=== PATIENT | female | born 1990 | race Caucasian/White ===

== ENCOUNTER 2017-11-28 16:28 | Emergency (ER) | payer MEDICAID, OTHER ==
[~2017-11-28 16:28] MED LIST: AMOX-580 PO; HYDR-3965 PO; NO HOME MEDS
== END 2017-11-28 17:21 | disposition left against medical advice (07) ==
LOC: ER 16:29
DX: R10.9 Unspecified abdominal pain (principal); Z53.21 Procedure and treatment not carried out due to patient leaving prior to being seen by health care provider

== ENCOUNTER 2018-01-27 20:13 | Inpatient (IN) | payer MEDICAID, OTHER ==
[~2018-01-27] VITALS: Ht 167.6 cm; Wt 61.8 kg
[~2018-01-27 20:13] MED LIST changes: -AMOX-580 PO; -HYDR-3965 PO
[2018-01-27 21:13] LABS: BASOPHILS % (AUTO) 0.2 % (0-1); EOSINOPHILS # (AUTO) 0.3 X10'3 (0-0.9); EOSINOPHILS % (AUTO) 1.5 % (0-6); HEMATOCRIT 28.9 % (35.0-45.0); HEMOGLOBIN 9.5 g/dl (12.0-16.0); LYMPHOCYTES # (AUTO) 2.3 X10'3 (1.1-4.8); LYMPHOCYTES % (AUTO) 14.3 % (21-51); MEAN CORPUSCULAR HEMOGLOBIN 22.3 PG (27.0-31.0); MEAN CORPUSCULAR HGB CONC 32.8 % (33.0-36.5); MEAN CORPUSCULAR VOLUME 68.1 FL (78-98); MONOCYTES # (AUTO) 1.1 X10'3 (0-0.9); MONOCYTES % (AUTO) 6.8 % (2-12); NEUTROPHILS # (AUTO) 12.6 X10'3 (1.8-7.7); NEUTROPHILS % (AUTO) 77.2 % (42-75); PLATELET COUNT 503 X10'3 (140-440); RED BLOOD COUNT 4.24 X10'6 (4.20-5.60); RED CELL DISTRIBUTION WIDTH 20.5 % (11.5-14.5); WHITE BLOOD COUNT 16.4 X10'3 (4.5-11.0)
[2018-01-27 21:24] LABS: PROTHROMBIN TIME 10.4 SECONDS (9.0-12.0)
[2018-01-27 21:30] LABS: ALANINE AMINOTRANSFERASE 19 U/L (12-78); ALBUMIN 2.9 G/DL (3.4-5.0); ALBUMIN/GLOBULIN RATIO 0.5 (1.1-1.5); ALKALINE PHOSPHATASE 81 IU/L (46-116); ANION GAP 8 (8-16); ASPARTATE AMINO TRANSFERASE 12 U/L (10-37); BILIRUBIN,TOTAL 0.4 MG/DL (0.1-1.0); BLOOD UREA NITROGEN 22 MG/DL (7-18); BUN/CREATININE RATIO 19.6 (6.6-38.0); CALCIUM 8.5 MG/DL (8.5-10.1); CHLORIDE 102 MMOL/L (99-107); CREATININE 1.12 MG/DL (0.40-0.90); GLUCOSE 134 MG/DL (70-104); SODIUM 137 MMOL/L (135-145); TOTAL CARBON DIOXIDE 26.6 MMOL/L (24-32); TOTAL PROTEIN 8.7 G/DL (6.4-8.2); eGFR 58 ML/MIN
[2018-01-27 22:08] LABS: LARGE PLATELETS FEW; PLATELET ESTIMATE INCREASED
[2018-01-27 22:10] LABS: ANISOCYTOSIS 3+; HYPOCHROMASIA 1+
[2018-01-27 22:11] LABS: MICROCYTOSIS 2+; STOMATOCYTES 1+
[2018-01-27 22:12] LABS: POLYCHROMASIA FEW
[2018-01-27 23:05] LABS: CLARITY,URINE Cloudy (Clear); COLOR,URINE Yellow (Yellow); GLUCOSE, URINE Negative (Neg); KETONES,URINE Negative (Neg); LEUKOCYTE ESTERASE ,URINE Large (Neg); NITRITES, URINE Positive (Neg); OCCULT BLOOD,URINE Moderate (Neg); PH,URINE 6.5 (4.8-8.0); PROTEIN,URINE 30 mg/dl (Neg); URINE HCG NEGATIVE (NEG)
[2018-01-27 23:14] LABS: UA COLLECTION TYPE CLN CATCH MIDSTREAM
[2018-01-27 23:15] LABS: WBC,URINE TNTC /HPF (0-4)
[2018-01-27 23:19] LABS: BACTERIA,URINE 4+ /HPF (Neg); MUCUS STRANDS MODERATE /LPF (Neg); SQUAMOUS EPITHELIAL CELL,UR MODERATE /LPF (FEW)
[2018-01-27 23:25] LABS: HYALINE CASTS 0-3 /LPF (NEGATIVE); WBC CLUMPS,URINE MANY /HPF (NEGATIVE)
[2018-01-27] MEDS ORDERED: normal saline 1000ML IV soln IV ONE (23:55)
[2018-01-27] MEDS ORDERED: CefTRIAXone 2gm/NS 100ml IVPB 100 ML IV ONE (23:55)
[2018-01-27] MEDS ORDERED: ketorolac tromethamine 15mg/ml inj. IV ONE (23:55)
[2018-01-28] MEDS ORDERED: ondansetron/PF 4mg/2ml inj IV PRN (01:20)
[2018-01-28] MEDS ORDERED: acetaminophen 325mg tablet PO PRN (01:20)
[2018-01-28] MEDS: normal saline 1000ml 1,000 ML IV SCH ×3 (01:27→17:00)
[2018-01-28] MEDS: MORPHINE 2MG in 2ml NS syringe IV PRN ×3 (04:11→20:34)
[2018-01-28] MEDS: heparin, porcine 5000 units/ml vial SQ SCH ×2 (07:17→20:24)
[2018-01-28] MEDS: lactobacillus rhamnosus 10,000 MMU CELLS/CAPSULE PO SCH ×2 (07:22→20:23)
[2018-01-28 17:00] VITALS: BP 117/61
[2018-01-28] MEDS: HYDROcodone/acetaminophen 5mg/325mg tablet PO PRN (17:22)
[2018-01-28] MEDS ORDERED: CefTRIAXone/D5W-Rocephin 1gm 50 ML IV SCH (21:00)
[2018-01-29 00:10] VITALS: BP 103/65
[2018-01-29] MEDS: HYDROcodone/acetaminophen 5mg/325mg tablet PO PRN (04:53)
[2018-01-29] MEDS: normal saline 1000ml 1,000 ML IV SCH (05:30)
[2018-01-29 05:41] LABS: BASOPHILS # (AUTO) 0.1 X10'3 (0-0.2); BASOPHILS % (AUTO) 0.7 % (0-1); EOSINOPHILS # (AUTO) 0.1 X10'3 (0-0.9); EOSINOPHILS % (AUTO) 1.7 % (0-6); HEMATOCRIT 24.6 % (35.0-45.0); HEMOGLOBIN 7.9 g/dl (12.0-16.0); LYMPHOCYTES # (AUTO) 2.1 X10'3 (1.1-4.8); LYMPHOCYTES % (AUTO) 27.6 % (21-51); MEAN CORPUSCULAR HGB CONC 32.2 % (33.0-36.5); MEAN CORPUSCULAR VOLUME 68.3 FL (78-98); MEAN PLATELET VOLUME 7.3 FL (7.4-10.4); MONOCYTES # (AUTO) 0.8 X10'3 (0-0.9); MONOCYTES % (AUTO) 10.6 % (2-12); NEUTROPHILS # (AUTO) 4.5 X10'3 (1.8-7.7); NEUTROPHILS % (AUTO) 59.4 % (42-75); PLATELET COUNT 412 X10'3 (140-440); RED CELL DISTRIBUTION WIDTH 20.2 % (11.5-14.5); WHITE BLOOD COUNT 7.6 X10'3 (4.5-11.0)
[2018-01-29 06:01] LABS: ALBUMIN 2.1 G/DL (3.4-5.0); ANION GAP 8 (8-16); BLOOD UREA NITROGEN 10 MG/DL (7-18); BUN/CREATININE RATIO 11.1 (6.6-38.0); CALCIUM 8.2 MG/DL (8.5-10.1); CHLORIDE 105 MMOL/L (99-107); GLUCOSE 105 MG/DL (70-104); POTASSIUM 4.1 MMOL/L (3.5-5.1); SODIUM 139 MMOL/L (135-145); TOTAL CARBON DIOXIDE 25.8 MMOL/L (24-32); eGFR 74 ML/MIN
[2018-01-29 08:00] VITALS: BP 101/49
[2018-01-29 08:38] LABS: HYPOCHROMASIA 1+; PLATELET ESTIMATE NORMAL
[2018-01-29 08:39] LABS: ANISOCYTOSIS 2+; MICROCYTOSIS 2+
[2018-01-29] MEDS: heparin, porcine 5000 units/ml vial SQ SCH (09:48)
[2018-01-29] MEDS: lactobacillus rhamnosus 10,000 MMU CELLS/CAPSULE PO SCH (09:48)
[2018-01-29] MEDS: MORPHINE 2MG in 2ml NS syringe IV PRN (09:52)
[2018-01-29] MEDS ORDERED: SULF1TAB49 PO (10:57)
[2018-01-29] MEDS ORDERED: HYDR-569 PO (10:57)
== END 2018-01-29 14:15 | disposition home or self-care (01) | DRG 720 ==
LOC: ER 20:14 → ED HOLD 01-28 01:18 → EDBEDREQ 01-28 16:16 → SUR 3N 01-28 16:52
PROVIDERS: ADMIT Family Medicine; ATTEND Internal Medicine
DX: A41.9 Sepsis, unspecified organism (principal); N10 Acute pyelonephritis; E86.0 Dehydration; F15.10 Other stimulant abuse, uncomplicated; F17.210 Nicotine dependence, cigarettes, uncomplicated; Z91.19 Patient's noncompliance with other medical treatment and regimen; Z87.442 Personal history of urinary calculi; Z82.0 Family history of epilepsy and other diseases of the nervous system
CPT/HCPCS: 36415; 74018; 76775; 80048; 80053; 81001; 81025; 83605; 84145; 85025; 85610; 87040; 87070; 87077; 87088; 87186; 96365; 96375; 99285; J0696; J1644; J1885; J2274; J2405; J7030

== ENCOUNTER 2018-04-11 16:48 | Inpatient (IN) | payer MEDICAID ==
[~2018-04-11] VITALS: Ht 167.6 cm; Wt 60.7 kg
[~2018-04-11 16:48] MED LIST changes: +HYDR-569 PO; -NO HOME MEDS
[2018-04-11 17:38] LABS: CLARITY,URINE TURBID (Clear); COLOR,URINE YELLOW (Yellow); GLUCOSE, URINE NEGATIVE (Neg); KETONES,URINE TRACE mg/dl (Neg); LEUKOCYTE ESTERASE ,URINE MODERATE (Neg); NITRITES, URINE POSITIVE (Neg); OCCULT BLOOD,URINE LARGE (Neg); PROTEIN,URINE >=300 mg/dl (Neg)
[2018-04-11 17:39] LABS: UA COLLECTION TYPE OTHER
[2018-04-11 17:43] LABS: BACTERIA,URINE 3+ /HPF (Neg); MUCUS STRANDS NONE SEEN /LPF (Neg); RBC,URINE 50-100 /HPF (0-2); SQUAMOUS EPITHELIAL CELL,UR MANY /LPF (FEW); WBC CLUMPS,URINE MODERATE /HPF (NEGATIVE); WBC,URINE 50-100 /HPF (0-4)
[2018-04-11 17:44] LABS: CAL OXALATE CRYSTALS 1+ /HPF (NEGATIVE)
[2018-04-11] MEDS ORDERED: NO HOME MEDS (18:25)
[2018-04-11] MEDS ORDERED: morphine 4 MG/ML inj SYRINge IV ONE (19:15)
[2018-04-11] MEDS ORDERED: mag hydrox/Alum hydrox/simeth 30ml oral suspension PO PRN (19:25)
[2018-04-11] MEDS ORDERED: magnesium 2GM in 50ml NS 50 ML IV PRN (19:25)
[2018-04-11] MEDS ORDERED: magnesium Cl slow-release 64mg tablet PO PRN (19:25)
[2018-04-11] MEDS ORDERED: HYDROcodone/acetaminophen 5mg/325mg tablet PO PRN (19:25)
[2018-04-11] MEDS ORDERED: magnesium 4gm in 100ml NS 100 ML IV PRN (19:25)
[2018-04-11] MEDS ORDERED: acetaminophen 325mg tablet PO PRN ×2 (19:25)
[2018-04-11] MEDS ORDERED: potassium Cl 20 mEq SR tablet PO PRN ×2 (19:25)
[2018-04-11] MEDS ORDERED: magnesium hydroxide 30ml (MOM) UD suspension PO PRN (19:25)
[2018-04-11] MEDS ORDERED: ondansetron/PF 4mg/2ml inj IV PRN (19:25)
[2018-04-11] MEDS ORDERED: potassium Cl 40MEQ/NS 500ml 500 ML IV PRN ×2 (19:25)
[2018-04-11] MEDS ORDERED: HYDROmorphone inj. 0.5 MG/0.5 ML DISP.SYRIN IV PRN ×2 (19:25)
[2018-04-11 19:38] LABS: BASOPHILS # (AUTO) 0.1 X10'3 (0-0.2); BASOPHILS % (AUTO) 0.5 % (0-1); EOSINOPHILS # (AUTO) 0.1 X10'3 (0-0.9); EOSINOPHILS % (AUTO) 1.2 % (0-6); HEMATOCRIT 33.6 % (35.0-45.0); HEMOGLOBIN 10.8 g/dl (12.0-16.0); LYMPHOCYTES # (AUTO) 3.3 X10'3 (1.1-4.8); LYMPHOCYTES % (AUTO) 27.7 % (21-51); MEAN CORPUSCULAR HEMOGLOBIN 22.1 PG (27.0-31.0); MEAN CORPUSCULAR HGB CONC 32.2 % (33.0-36.5); MEAN CORPUSCULAR VOLUME 68.8 FL (78-98); MEAN PLATELET VOLUME 7.7 FL (7.4-10.4); MONOCYTES # (AUTO) 0.8 X10'3 (0-0.9); MONOCYTES % (AUTO) 7.1 % (2-12); NEUTROPHILS # (AUTO) 7.6 X10'3 (1.8-7.7); NEUTROPHILS % (AUTO) 63.5 % (42-75); PLATELET COUNT 339 X10'3 (140-440); RED BLOOD COUNT 4.88 X10'6 (4.20-5.60); RED CELL DISTRIBUTION WIDTH 20.6 % (11.5-14.5)
[2018-04-11 19:52] LABS: ALANINE AMINOTRANSFERASE 18 U/L (12-78); ALBUMIN 3.2 G/DL (3.4-5.0); ALBUMIN/GLOBULIN RATIO 0.7 (1.1-1.5); ALKALINE PHOSPHATASE 79 IU/L (46-116); ANION GAP 4 (8-16); ASPARTATE AMINO TRANSFERASE 16 U/L (10-37); BILIRUBIN,TOTAL 0.3 MG/DL (0.1-1.0); BLOOD UREA NITROGEN 15 MG/DL (7-18); BUN/CREATININE RATIO 14.6 (6.6-38.0); CALCIUM 8.6 MG/DL (8.5-10.1); CHLORIDE 106 MMOL/L (99-107); CREATININE 1.03 MG/DL (0.40-0.90); GLUCOSE 89 MG/DL (70-104); POTASSIUM 3.4 MMOL/L (3.5-5.1); SODIUM 137 MMOL/L (135-145); TOTAL CARBON DIOXIDE 27.1 MMOL/L (24-32); TOTAL PROTEIN 7.7 G/DL (6.4-8.2); eGFR 63 ML/MIN
[2018-04-11] MEDS: CefTRIAXone/D5W-Rocephin 1gm 50 ML IV SCH ×2 (20:16→20:25)
[2018-04-11] MEDS: normal saline 1000ml 1,000 ML IV SCH (20:24)
[2018-04-11 20:48] VITALS: BP 133/82
[2018-04-11] MEDS ORDERED: temazepam 15mg capsule PO PRN (21:00)
[2018-04-11 22:08] LABS: PARTIAL THROMBOPLASTIN TIME 25 SECONDS (22-32); PROTHROMBIN TIME 10.1 SECONDS (9.0-12.0)
[2018-04-11] MEDS ORDERED: potassium Cl 40MEQ/NS 500ml 500 ML IV ONE (23:19)
[2018-04-12] VITALS: BP 126/79
[2018-04-12 04:12] LABS: BASOPHILS % (AUTO) 0.3 % (0-1); EOSINOPHILS # (AUTO) 0.4 X10'3 (0-0.9); HEMATOCRIT 32.9 % (35.0-45.0); HEMOGLOBIN 10.4 g/dl (12.0-16.0); LYMPHOCYTES # (AUTO) 3.1 X10'3 (1.1-4.8); LYMPHOCYTES % (AUTO) 32.3 % (21-51); MEAN CORPUSCULAR HGB CONC 31.8 % (33.0-36.5); MEAN CORPUSCULAR VOLUME 69.1 FL (78-98); MEAN PLATELET VOLUME 7.8 FL (7.4-10.4); MONOCYTES # (AUTO) 0.8 X10'3 (0-0.9); MONOCYTES % (AUTO) 8.8 % (2-12); NEUTROPHILS # (AUTO) 5.3 X10'3 (1.8-7.7); NEUTROPHILS % (AUTO) 54.6 % (42-75); PLATELET COUNT 323 X10'3 (140-440); RED BLOOD COUNT 4.76 X10'6 (4.20-5.60); RED CELL DISTRIBUTION WIDTH 19.9 % (11.5-14.5); WHITE BLOOD COUNT 9.7 X10'3 (4.5-11.0)
[2018-04-12 04:53] LABS: ALANINE AMINOTRANSFERASE 19 U/L (12-78); ALBUMIN 2.9 G/DL (3.4-5.0); ALBUMIN/GLOBULIN RATIO 0.7 (1.1-1.5); ALKALINE PHOSPHATASE 76 IU/L (46-116); ANION GAP 6 (8-16); ASPARTATE AMINO TRANSFERASE 14 U/L (10-37); BILIRUBIN,TOTAL 0.3 MG/DL (0.1-1.0); BLOOD UREA NITROGEN 13 MG/DL (7-18); BUN/CREATININE RATIO 14.4 (6.6-38.0); CALCIUM 8.7 MG/DL (8.5-10.1); CHLORIDE 106 MMOL/L (99-107); GLUCOSE 85 MG/DL (70-104); MAGNESIUM 1.9 MG/DL (1.5-2.4); POTASSIUM 3.2 MMOL/L (3.5-5.1); SODIUM 140 MMOL/L (135-145); TOTAL CARBON DIOXIDE 28.1 MMOL/L (24-32); TOTAL PROTEIN 7.1 G/DL (6.4-8.2); eGFR 74 ML/MIN
[2018-04-12 06:06] LABS: ANISOCYTOSIS 2+; MICROCYTOSIS 2+; PLATELET ESTIMATE NORMAL
[2018-04-12 06:07] LABS: ELLIPTOCYTES FEW; STOMATOCYTES FEW
[2018-04-12 07:00] VITALS: BP 116/68
[2018-04-12] MEDS: lactobacillus rhamnosus 10,000 MMU CELLS/CAPSULE PO SCH ×2 (08:00→20:39)
[2018-04-12] MEDS: K and/or MAG REPLACEMENT MC SCH (08:00)
[2018-04-12 11:50] VITALS: BP 104/76
[2018-04-12] MEDS ORDERED: HYDROmorphone 1 mg/ml syringe ONE (14:32)
[2018-04-12] MEDS: normal saline 1000ml 1,000 ML IV SCH (14:44)
[2018-04-12] MEDS: HYDROcodone/acetaminophen 10/325mg tab PO PRN ×2 (17:50→21:50)
[2018-04-12 20:00] VITALS: BP 106/58
[2018-04-12] MEDS: mineral oil/petrolatum, white cream 113gm jar TP SCH (20:00)
[2018-04-12] MEDS: sennosides/docusate sodium tablet PO SCH (20:39)
[2018-04-13] VITALS: BP 99/59
[2018-04-13 05:28] LABS: BASOPHILS % (AUTO) 0.5 % (0-1); EOSINOPHILS # (AUTO) 0.5 X10'3 (0-0.9); EOSINOPHILS % (AUTO) 8.2 % (0-6); HEMOGLOBIN 10.2 g/dl (12.0-16.0); LYMPHOCYTES # (AUTO) 3.2 X10'3 (1.1-4.8); LYMPHOCYTES % (AUTO) 47.1 % (21-51); MEAN CORPUSCULAR HGB CONC 31.7 % (33.0-36.5); MEAN CORPUSCULAR VOLUME 69.2 FL (78-98); MEAN PLATELET VOLUME 7.9 FL (7.4-10.4); MONOCYTES # (AUTO) 0.7 X10'3 (0-0.9); MONOCYTES % (AUTO) 9.8 % (2-12); NEUTROPHILS # (AUTO) 2.3 X10'3 (1.8-7.7); NEUTROPHILS % (AUTO) 34.4 % (42-75); PLATELET COUNT 285 X10'3 (140-440); RED BLOOD COUNT 4.63 X10'6 (4.20-5.60); RED CELL DISTRIBUTION WIDTH 20.4 % (11.5-14.5); WHITE BLOOD COUNT 6.7 X10'3 (4.5-11.0)
[2018-04-13] MEDS: normal saline 1000ml 1,000 ML IV SCH ×3 (05:31→17:59)
[2018-04-13 05:38] LABS: URINE AMPHETAMINE SCREEN POSITIVE (Neg); URINE BARBITUATE SCREEN NEGATIVE (Neg); URINE BENZODIAZEPINES SCREEN NEGATIVE (Neg); URINE CANNABINOID SCREEN NEGATIVE (Neg); URINE COCAINE SCREEN NEGATIVE (Neg); URINE METHADONE SCREEN NEGATIVE (Neg); URINE OPIATE SCREEN POSITIVE (Neg); URINE PHENCYCLIDINE SCREEN NEGATIVE (Neg)
[2018-04-13 06:13] LABS: ALANINE AMINOTRANSFERASE 15 U/L (12-78); ALBUMIN 2.6 G/DL (3.4-5.0); ALBUMIN/GLOBULIN RATIO 0.6 (1.1-1.5); ALKALINE PHOSPHATASE 71 IU/L (46-116); ANION GAP 7 (8-16); ASPARTATE AMINO TRANSFERASE 13 U/L (10-37); BILIRUBIN,TOTAL 0.2 MG/DL (0.1-1.0); BLOOD UREA NITROGEN 18 MG/DL (7-18); BUN/CREATININE RATIO 19.1 (6.6-38.0); CALCIUM 8.2 MG/DL (8.5-10.1); CHLORIDE 106 MMOL/L (99-107); CREATININE 0.94 MG/DL (0.40-0.90); GLUCOSE 98 MG/DL (70-104); POTASSIUM 3.8 MMOL/L (3.5-5.1); SODIUM 141 MMOL/L (135-145); TOTAL CARBON DIOXIDE 27.7 MMOL/L (24-32); TOTAL PROTEIN 6.7 G/DL (6.4-8.2); eGFR 70 ML/MIN
[2018-04-13 06:40] LABS: % IRON SATURATION 7 % (11-46); IRON 24 UG/DL (49-151); TOTAL IRON BINDING CAPACITY 356 UG/DL (259-388)
[2018-04-13 06:51] VITALS: BP 100/58
[2018-04-13] MEDS: lactobacillus rhamnosus 10,000 MMU CELLS/CAPSULE PO SCH ×2 (07:39→19:28)
[2018-04-13] MEDS: CefTRIAXone/D5W-Rocephin 1gm 50 ML IV SCH (07:39)
[2018-04-13] MEDS: HYDROcodone/acetaminophen 10/325mg tab PO PRN ×3 (07:44→17:59)
[2018-04-13] MEDS: mineral oil/petrolatum, white cream 113gm jar TP SCH ×2 (08:00→20:00)
[2018-04-13] MEDS: K and/or MAG REPLACEMENT MC SCH (08:00)
[2018-04-13 11:27] VITALS: BP 107/72
[2018-04-13] MEDS: sennosides/docusate sodium tablet PO SCH (19:28)
[2018-04-13 19:30] VITALS: BP 111/70
[2018-04-14] MEDS ORDERED: SULF1TAB49 (07:12)
== END 2018-04-13 20:55 | disposition left against medical advice (07) | DRG 465 ==
LOC: ER 16:48 → ED HOLD 19:24 → SUR 3N 20:48
PROVIDERS: ADMIT Family Medicine; ATTEND Family Medicine
DX: N20.0 Calculus of kidney (principal); N12 Tubulo-interstitial nephritis, not specified as acute or chronic; D50.9 Iron deficiency anemia, unspecified; E87.6 Hypokalemia; K59.00 Constipation, unspecified; L23.7 Allergic contact dermatitis due to plants, except food; N21.1 Calculus in urethra; Z53.21 Procedure and treatment not carried out due to patient leaving prior to being seen by health care provider; Z59.0 Homelessness; Z72.0 Tobacco use; Z91.19 Patient's noncompliance with other medical treatment and regimen
CPT/HCPCS: 36415; 74176; 80053; 80305; 81001; 82607; 82746; 83540; 83550; 83605; 83735; 85025; 85610; 85730; 87040; 87070; 87088; 99285; J0696; J1170; J2270; J3480; J7030

== ENCOUNTER 2018-04-13 22:16 | Emergency (ER) | payer MEDICAID ==
[~2018-04-13] VITALS: Ht 167.6 cm; Wt 64.9 kg
[~2018-04-13 22:16] MED LIST changes: -HYDR-569 PO; +NO HOME MEDS
[2018-04-13 22:28] VITALS: BP 122/62
[2018-04-14] MEDS ORDERED: SULF1TAB49 (07:12)
== END 2018-04-13 23:43 | disposition left against medical advice (07) ==
LOC: ER 22:16
DX: N23 Unspecified renal colic (principal); Z53.21 Procedure and treatment not carried out due to patient leaving prior to being seen by health care provider

== ENCOUNTER 2018-04-13 23:56 | Inpatient (IN) | payer MEDICAID ==
[~2018-04-13] VITALS: Ht 167.6 cm; Wt 56.8 kg
[2018-04-14] MEDS ORDERED: normal saline 1000ML IV soln IVB ONE (01:20)
[2018-04-14] MEDS ORDERED: morphine 4 MG/ML inj SYRINge IV ONE (01:20)
[2018-04-14] MEDS ORDERED: ondansetron/PF 4mg/2ml inj IV ONE (01:20)
[2018-04-14 01:59] LABS: URINE HCG NEGATIVE (NEG)
[2018-04-14 02:00] LABS: BASOPHILS % (AUTO) 0.4 % (0-1); EOSINOPHILS # (AUTO) 0.5 X10'3 (0-0.9); EOSINOPHILS % (AUTO) 5.6 % (0-6); HEMOGLOBIN 10.8 g/dl (12.0-16.0); LYMPHOCYTES # (AUTO) 2.9 X10'3 (1.1-4.8); LYMPHOCYTES % (AUTO) 31.3 % (21-51); MEAN CORPUSCULAR HEMOGLOBIN 22.4 PG (27.0-31.0); MEAN CORPUSCULAR HGB CONC 31.8 % (33.0-36.5); MEAN CORPUSCULAR VOLUME 70.4 FL (78-98); MEAN PLATELET VOLUME 7.8 FL (7.4-10.4); MONOCYTES # (AUTO) 0.7 X10'3 (0-0.9); NEUTROPHILS # (AUTO) 5.1 X10'3 (1.8-7.7); NEUTROPHILS % (AUTO) 54.7 % (42-75); PLATELET COUNT 323 X10'3 (140-440); RED BLOOD COUNT 4.84 X10'6 (4.20-5.60); RED CELL DISTRIBUTION WIDTH 19.8 % (11.5-14.5); WHITE BLOOD COUNT 9.3 X10'3 (4.5-11.0)
[2018-04-14 02:08] LABS: ALANINE AMINOTRANSFERASE 19 U/L (12-78); ALBUMIN 3.4 G/DL (3.4-5.0); ALBUMIN/GLOBULIN RATIO 0.7 (1.1-1.5); ALKALINE PHOSPHATASE 80 IU/L (46-116); ANION GAP 6 (8-16); ASPARTATE AMINO TRANSFERASE 13 U/L (10-37); BILIRUBIN,TOTAL 0.2 MG/DL (0.1-1.0); BLOOD UREA NITROGEN 14 MG/DL (7-18); BUN/CREATININE RATIO 13.9 (6.6-38.0); CALCIUM 8.8 MG/DL (8.5-10.1); CHLORIDE 105 MMOL/L (99-107); CREATININE 1.01 MG/DL (0.40-0.90); GLUCOSE 83 MG/DL (70-104); POTASSIUM 3.3 MMOL/L (3.5-5.1); SODIUM 143 MMOL/L (135-145); TOTAL PROTEIN 8.1 G/DL (6.4-8.2); eGFR 65 ML/MIN
[2018-04-14 02:10] LABS: CLARITY,URINE SLIGHTLY CLOUDY (Clear); COLOR,URINE YELLOW (Yellow); GLUCOSE, URINE NEGATIVE (Neg); KETONES,URINE NEGATIVE (Neg); LEUKOCYTE ESTERASE ,URINE LARGE (Neg); NITRITES, URINE NEGATIVE (Neg); OCCULT BLOOD,URINE LARGE (Neg); PROTEIN,URINE NEGATIVE (Neg); UROBILINOGEN,URINE 0.2 E.U/dL (0.2-1.0)
[2018-04-14 02:11] LABS: UA COLLECTION TYPE NON-SPECIFIED
[2018-04-14 02:18] LABS: URINE AMPHETAMINE SCREEN NEGATIVE (Neg); URINE BARBITUATE SCREEN NEGATIVE (Neg); URINE BENZODIAZEPINES SCREEN NEGATIVE (Neg); URINE CANNABINOID SCREEN NEGATIVE (Neg); URINE COCAINE SCREEN NEGATIVE (Neg); URINE METHADONE SCREEN NEGATIVE (Neg); URINE OPIATE SCREEN POSITIVE (Neg); URINE PHENCYCLIDINE SCREEN NEGATIVE (Neg)
[2018-04-14 02:19] LABS: WBC,URINE TNTC /HPF (0-4)
[2018-04-14 02:21] LABS: BACTERIA,URINE 2+ /HPF (Neg); RBC,URINE TNTC /HPF (0-2); SQUAMOUS EPITHELIAL CELL,UR MODERATE /LPF (FEW); WBC CLUMPS,URINE MODERATE /HPF (NEGATIVE)
[2018-04-14 02:22] LABS: TRICHOMONAS,URINE FEW /HPF (NEGATIVE)
[2018-04-14] MEDS ORDERED: CefTRIAXone/D5W-Rocephin 1gm 50 ML IV ONE (05:30)
[2018-04-14] MEDS ORDERED: normal saline 1000ml 1,000 ML IV SCH (06:08)
[2018-04-14] MEDS ORDERED: SULF1TAB49 (07:12)
[2018-04-14 08:35] VITALS: BP 119/68
[2018-04-14] MEDS: morphine 4 MG/ML inj SYRINge IV PRN ×3 (09:04→18:55)
[2018-04-14 11:00] VITALS: BP 125/75
[2018-04-14] MEDS ORDERED: magnesium 4gm in 100ml NS 100 ML IV PRN (14:10)
[2018-04-14] MEDS ORDERED: potassium Cl 20 mEq SR tablet PO PRN (14:10)
[2018-04-14] MEDS ORDERED: potassium Cl 40MEQ/NS 500ml 500 ML IV PRN ×2 (14:10)
[2018-04-14] MEDS ORDERED: magnesium 2GM in 50ml NS 50 ML IV PRN (14:10)
[2018-04-14] MEDS ORDERED: magnesium Cl slow-release 64mg tablet PO PRN (14:10)
[2018-04-14] MEDS: potassium Cl 20 mEq SR tablet PO PRN ×2 (14:38→21:00)
[2018-04-14] MEDS: metroNIDAZOLE 500mg tablet PO SCH ×2 (14:39→21:01)
[2018-04-14] MEDS: enoxaparin 40mg/0.4ml syringe SUBCUT SCH (14:39)
[2018-04-14] MEDS: potassium Cl 20mEq in NS 1,000 ML IV SCH (16:48)
[2018-04-14 19:00] VITALS: BP 129/84
[2018-04-14 23:40] VITALS: BP 129/80
[2018-04-15] MEDS: potassium Cl 20mEq in NS 1,000 ML IV SCH ×3 (01:01→22:36)
[2018-04-15] MEDS: potassium Cl 20 mEq SR tablet PO PRN (01:01)
[2018-04-15] MEDS: morphine 4 MG/ML inj SYRINge IV PRN ×5 (05:24→23:43)
[2018-04-15 05:45] LABS: BASOPHILS # (AUTO) 0.1 X10'3 (0-0.2); BASOPHILS % (AUTO) 0.7 % (0-1); EOSINOPHILS # (AUTO) 0.6 X10'3 (0-0.9); EOSINOPHILS % (AUTO) 7.2 % (0-6); HEMOGLOBIN 9.5 g/dl (12.0-16.0); LYMPHOCYTES # (AUTO) 2.7 X10'3 (1.1-4.8); LYMPHOCYTES % (AUTO) 33.2 % (21-51); MEAN CORPUSCULAR HGB CONC 31.6 % (33.0-36.5); MEAN CORPUSCULAR VOLUME 69.7 FL (78-98); MONOCYTES # (AUTO) 0.7 X10'3 (0-0.9); MONOCYTES % (AUTO) 8.2 % (2-12); NEUTROPHILS # (AUTO) 4.1 X10'3 (1.8-7.7); NEUTROPHILS % (AUTO) 50.7 % (42-75); PLATELET COUNT 260 X10'3 (140-440); RED BLOOD COUNT 4.31 X10'6 (4.20-5.60); RED CELL DISTRIBUTION WIDTH 20.1 % (11.5-14.5); WHITE BLOOD COUNT 8.2 X10'3 (4.5-11.0)
[2018-04-15 05:56] LABS: ALBUMIN 2.6 G/DL (3.4-5.0); ALBUMIN/GLOBULIN RATIO 0.6 (1.1-1.5); ALKALINE PHOSPHATASE 72 IU/L (46-116); ANION GAP 9 (8-16); ASPARTATE AMINO TRANSFERASE 6 U/L (10-37); BILIRUBIN,TOTAL 0.1 MG/DL (0.1-1.0); BLOOD UREA NITROGEN 15 MG/DL (7-18); CALCIUM 8.1 MG/DL (8.5-10.1); CHLORIDE 107 MMOL/L (99-107); CREATININE 0.88 MG/DL (0.40-0.90); GLUCOSE 101 MG/DL (70-104); MAGNESIUM 1.9 MG/DL (1.5-2.4); POTASSIUM 4.3 MMOL/L (3.5-5.1); SODIUM 142 MMOL/L (135-145); TOTAL CARBON DIOXIDE 25.7 MMOL/L (24-32); TOTAL PROTEIN 6.8 G/DL (6.4-8.2); eGFR 76 ML/MIN
[2018-04-15 06:05] LABS: ALANINE AMINOTRANSFERASE < 6 U/L (12-78)
[2018-04-15 06:13] LABS: ANISOCYTOSIS 2+; MICROCYTOSIS 2+; PLATELET ESTIMATE NORMAL
[2018-04-15 06:14] LABS: HYPOCHROMASIA 2+
[2018-04-15 07:03] VITALS: BP 109/67
[2018-04-15] MEDS: enoxaparin 40mg/0.4ml syringe SUBCUT SCH (07:40)
[2018-04-15] MEDS: CefTRIAXone/D5W-Rocephin 1gm 50 ML IV SCH (07:40)
[2018-04-15] MEDS: metroNIDAZOLE 500mg tablet PO SCH ×2 (07:40→19:40)
[2018-04-15 11:29] VITALS: BP 112/61
[2018-04-15 19:15] VITALS: BP 119/72
[2018-04-15] MEDS: lactobacillus rhamnosus 10,000 MMU CELLS/CAPSULE PO SCH (19:40)
[2018-04-15 23:45] VITALS: BP 120/78
[2018-04-16] MEDS: morphine 4 MG/ML inj SYRINge IV PRN ×4 (03:48→20:42)
[2018-04-16 05:40] LABS: BASOPHILS % (AUTO) 0.6 % (0-1); EOSINOPHILS # (AUTO) 0.6 X10'3 (0-0.9); EOSINOPHILS % (AUTO) 8.1 % (0-6); HEMATOCRIT 32.8 % (35.0-45.0); HEMOGLOBIN 10.4 g/dl (12.0-16.0); LYMPHOCYTES # (AUTO) 2.9 X10'3 (1.1-4.8); LYMPHOCYTES % (AUTO) 37.5 % (21-51); MEAN CORPUSCULAR HEMOGLOBIN 21.8 PG (27.0-31.0); MEAN CORPUSCULAR HGB CONC 31.6 % (33.0-36.5); MEAN PLATELET VOLUME 7.9 FL (7.4-10.4); MONOCYTES # (AUTO) 0.7 X10'3 (0-0.9); MONOCYTES % (AUTO) 9.4 % (2-12); NEUTROPHILS # (AUTO) 3.4 X10'3 (1.8-7.7); NEUTROPHILS % (AUTO) 44.4 % (42-75); PLATELET COUNT 293 X10'3 (140-440); RED BLOOD COUNT 4.76 X10'6 (4.20-5.60); RED CELL DISTRIBUTION WIDTH 20.4 % (11.5-14.5); WHITE BLOOD COUNT 7.6 X10'3 (4.5-11.0)
[2018-04-16 06:04] LABS: ALANINE AMINOTRANSFERASE 16 U/L (12-78); ALBUMIN 2.9 G/DL (3.4-5.0); ALBUMIN/GLOBULIN RATIO 0.7 (1.1-1.5); ALKALINE PHOSPHATASE 71 IU/L (46-116); ANION GAP 6 (8-16); ASPARTATE AMINO TRANSFERASE 14 U/L (10-37); BILIRUBIN,TOTAL 0.2 MG/DL (0.1-1.0); BLOOD UREA NITROGEN 11 MG/DL (7-18); BUN/CREATININE RATIO 15.1 (6.6-38.0); CALCIUM 8.7 MG/DL (8.5-10.1); CHLORIDE 106 MMOL/L (99-107); CREATININE 0.73 MG/DL (0.40-0.90); GLUCOSE 101 MG/DL (70-104); POTASSIUM 4.4 MMOL/L (3.5-5.1); SODIUM 141 MMOL/L (135-145); TOTAL CARBON DIOXIDE 28.7 MMOL/L (24-32); TOTAL PROTEIN 7.1 G/DL (6.4-8.2); eGFR > 90 ML/MIN
[2018-04-16 08:00] VITALS: BP 113/59
[2018-04-16] MEDS: enoxaparin 40mg/0.4ml syringe SUBCUT SCH (08:00)
[2018-04-16] MEDS: metroNIDAZOLE 500mg tablet PO SCH ×2 (08:32→20:33)
[2018-04-16] MEDS: lactobacillus rhamnosus 10,000 MMU CELLS/CAPSULE PO SCH ×2 (08:32→20:33)
[2018-04-16] MEDS: CefTRIAXone/D5W-Rocephin 1gm 50 ML IV SCH (08:32)
[2018-04-16 12:00] VITALS: BP 102/61
[2018-04-16] MEDS: potassium Cl 20mEq in NS 1,000 ML IV SCH ×2 (15:06→18:27)
[2018-04-16] MEDS: HYDROcodone/acetaminophen 5mg/325mg tablet PO PRN (18:56)
[2018-04-16 22:06] VITALS: BP 116/88
[2018-04-17 00:41] VITALS: BP 120/66
[2018-04-17] MEDS: morphine 4 MG/ML inj SYRINge IV PRN ×4 (03:16→20:35)
[2018-04-17] MEDS: potassium Cl 20mEq in NS 1,000 ML IV SCH ×3 (05:23→23:59)
[2018-04-17 05:44] LABS: ALBUMIN 2.8 G/DL (3.4-5.0); ANION GAP 9 (8-16); BLOOD UREA NITROGEN 17 MG/DL (7-18); BUN/CREATININE RATIO 16.7 (6.6-38.0); CALCIUM 8.3 MG/DL (8.5-10.1); CHLORIDE 106 MMOL/L (99-107); CREATININE 1.02 MG/DL (0.40-0.90); GLUCOSE 112 MG/DL (70-104); MAGNESIUM 1.7 MG/DL (1.5-2.4); POTASSIUM 4.1 MMOL/L (3.5-5.1); SODIUM 141 MMOL/L (135-145); TOTAL CARBON DIOXIDE 26.4 MMOL/L (24-32); eGFR 64 ML/MIN
[2018-04-17 08:34] VITALS: BP 121/72
[2018-04-17] MEDS: CefTRIAXone/D5W-Rocephin 1gm 50 ML IV SCH (09:49)
[2018-04-17] MEDS: lactobacillus rhamnosus 10,000 MMU CELLS/CAPSULE PO SCH ×2 (09:50→19:44)
[2018-04-17] MEDS: metroNIDAZOLE 500mg tablet PO SCH ×2 (09:50→19:44)
[2018-04-17] MEDS: enoxaparin 40mg/0.4ml syringe SUBCUT SCH (09:51)
[2018-04-17 12:21] VITALS: BP 113/73
[2018-04-17 14:26] LABS: CLARITY,URINE CLEAR (Clear); COLOR,URINE YELLOW (Yellow); GLUCOSE, URINE NEGATIVE (Neg); KETONES,URINE NEGATIVE (Neg); LEUKOCYTE ESTERASE ,URINE MODERATE (Neg); NITRITES, URINE NEGATIVE (Neg); OCCULT BLOOD,URINE SMALL (Neg); PROTEIN,URINE NEGATIVE (Neg); UROBILINOGEN,URINE 0.2 E.U/dL (0.2-1.0)
[2018-04-17 14:30] LABS: UA COLLECTION TYPE NON-SPECIFIED
[2018-04-17 14:38] LABS: SQUAMOUS EPITHELIAL CELL,UR MODERATE /LPF (FEW)
[2018-04-17 14:39] LABS: BACTERIA,URINE 1+ /HPF (Neg); RBC,URINE 20-50 /HPF (0-2)
[2018-04-17 14:41] LABS: WBC CLUMPS,URINE FEW /HPF (NEGATIVE)
[2018-04-17 14:42] LABS: WBC,URINE 20-30 /HPF (0-4)
[2018-04-17 18:00] VITALS: BP 121/84
[2018-04-17] MEDS: HYDROcodone/acetaminophen 5mg/325mg tablet PO PRN (18:44)
[2018-04-18] VITALS: BP 108/73
[2018-04-18] MEDS: morphine 4 MG/ML inj SYRINge IV PRN ×4 (01:11→17:46)
[2018-04-18 06:40] LABS: ALBUMIN 2.7 G/DL (3.4-5.0); ANION GAP 8 (8-16); BLOOD UREA NITROGEN 14 MG/DL (7-18); BUN/CREATININE RATIO 16.5 (6.6-38.0); CALCIUM 8.5 MG/DL (8.5-10.1); CHLORIDE 108 MMOL/L (99-107); CREATININE 0.85 MG/DL (0.40-0.90); GLUCOSE 103 MG/DL (70-104); MAGNESIUM 1.7 MG/DL (1.5-2.4); POTASSIUM 4.2 MMOL/L (3.5-5.1); SODIUM 141 MMOL/L (135-145); eGFR 79 ML/MIN
[2018-04-18 06:55] VITALS: BP 122/56
[2018-04-18] MEDS: lactobacillus rhamnosus 10,000 MMU CELLS/CAPSULE PO SCH ×2 (07:39→19:28)
[2018-04-18] MEDS: metroNIDAZOLE 500mg tablet PO SCH ×2 (07:39→19:28)
[2018-04-18] MEDS: CefTRIAXone/D5W-Rocephin 1gm 50 ML IV SCH (07:39)
[2018-04-18] MEDS: enoxaparin 40mg/0.4ml syringe SUBCUT SCH (07:40)
[2018-04-18] MEDS: potassium Cl 20mEq in NS 1,000 ML IV SCH ×2 (11:53→19:46)
[2018-04-18 12:21] VITALS: BP 108/56
[2018-04-18] MEDS: HYDROcodone/acetaminophen 5mg/325mg tablet PO PRN ×2 (15:43→19:44)
[2018-04-18 18:00] VITALS: BP 111/64
[2018-04-19] VITALS: BP 111/67
[2018-04-19] MEDS: HYDROcodone/acetaminophen 5mg/325mg tablet PO PRN ×3 (03:04→21:28)
[2018-04-19] MEDS: potassium Cl 20mEq in NS 1,000 ML IV SCH ×3 (03:06→22:23)
[2018-04-19 07:40] LABS: ALBUMIN 2.8 G/DL (3.4-5.0); ANION GAP 7 (8-16); BLOOD UREA NITROGEN 12 MG/DL (7-18); BUN/CREATININE RATIO 13.8 (6.6-38.0); CALCIUM 8.5 MG/DL (8.5-10.1); CHLORIDE 107 MMOL/L (99-107); CREATININE 0.87 MG/DL (0.40-0.90); GLUCOSE 94 MG/DL (70-104); MAGNESIUM 1.8 MG/DL (1.5-2.4); POTASSIUM 4.3 MMOL/L (3.5-5.1); SODIUM 141 MMOL/L (135-145); TOTAL CARBON DIOXIDE 27.5 MMOL/L (24-32); eGFR 77 ML/MIN
[2018-04-19] MEDS: metroNIDAZOLE 500mg tablet PO SCH ×2 (07:42→19:17)
[2018-04-19] MEDS: lactobacillus rhamnosus 10,000 MMU CELLS/CAPSULE PO SCH ×2 (07:42→19:17)
[2018-04-19] MEDS: CefTRIAXone/D5W-Rocephin 1gm 50 ML IV SCH (07:43)
[2018-04-19] MEDS: enoxaparin 40mg/0.4ml syringe SUBCUT SCH (07:49)
[2018-04-19 07:56] VITALS: BP 109/54
[2018-04-19 11:33] VITALS: BP 104/50
[2018-04-19] MEDS: LORazepam 2 mg/ml vial IV PRN ×2 (13:34→19:25)
[2018-04-19 19:00] VITALS: BP 113/73
[2018-04-19] MEDS: ondansetron/PF 4mg/2ml inj IV PRN (22:44)
[2018-04-19] MEDS: morphine 4 MG/ML inj SYRINge IV PRN (22:44)
[2018-04-20] VITALS: BP 120/81
[2018-04-20] MEDS: potassium Cl 20mEq in NS 1,000 ML IV SCH ×2 (05:41→15:34)
[2018-04-20 06:14] LABS: ALBUMIN 2.7 G/DL (3.4-5.0); ANION GAP 9 (8-16); BLOOD UREA NITROGEN 17 MG/DL (7-18); BUN/CREATININE RATIO 17.3 (6.6-38.0); CALCIUM 8.3 MG/DL (8.5-10.1); CHLORIDE 108 MMOL/L (99-107); CREATININE 0.98 MG/DL (0.40-0.90); GLUCOSE 100 MG/DL (70-104); POTASSIUM 4.3 MMOL/L (3.5-5.1); SODIUM 141 MMOL/L (135-145); TOTAL CARBON DIOXIDE 24.3 MMOL/L (24-32); eGFR 67 ML/MIN
[2018-04-20 08:00] VITALS: BP 95/45
[2018-04-20] MEDS: enoxaparin 40mg/0.4ml syringe SUBCUT SCH (08:00)
[2018-04-20] MEDS: CefTRIAXone/D5W-Rocephin 1gm 50 ML IV SCH (08:31)
[2018-04-20] MEDS: lactobacillus rhamnosus 10,000 MMU CELLS/CAPSULE PO SCH ×2 (08:31→19:24)
[2018-04-20] MEDS: metroNIDAZOLE 500mg tablet PO SCH ×2 (08:31→19:24)
[2018-04-20] MEDS: HYDROcodone/acetaminophen 5mg/325mg tablet PO PRN ×2 (08:32→15:34)
[2018-04-20 12:00] VITALS: BP 102/59
[2018-04-20] MEDS: morphine 4 MG/ML inj SYRINge IV PRN ×2 (12:38→19:24)
[2018-04-20 18:00] VITALS: BP 106/68
[2018-04-20] MEDS: LORazepam 2 mg/ml vial IV PRN (20:22)
[2018-04-20 23:20] LABS: CLARITY,URINE CLEAR (Clear); COLOR,URINE STRAW (Yellow); GLUCOSE, URINE NEGATIVE (Neg); KETONES,URINE NEGATIVE (Neg); LEUKOCYTE ESTERASE ,URINE SMALL (Neg); NITRITES, URINE NEGATIVE (Neg); OCCULT BLOOD,URINE TRACE-INTACT (Neg); PH,URINE 6.5 (4.8-8.0); PROTEIN,URINE NEGATIVE (Neg); UROBILINOGEN,URINE 0.2 E.U/dL (0.2-1.0)
[2018-04-20 23:24] LABS: UA COLLECTION TYPE CLN CATCH MIDSTREAM
[2018-04-20 23:47] LABS: SQUAMOUS EPITHELIAL CELL,UR NONE SEEN /LPF (FEW); WBC,URINE NONE SEEN /HPF (0-4)
[2018-04-20 23:48] LABS: BACTERIA,URINE NONE SEEN /HPF (Neg)
[2018-04-21 00:13] VITALS: BP 118/69
[2018-04-21] MEDS: potassium Cl 20mEq in NS 1,000 ML IV SCH ×2 (03:29→13:31)
[2018-04-21] MEDS: morphine 4 MG/ML inj SYRINge IV PRN ×5 (03:30→22:02)
[2018-04-21 05:27] LABS: BASOPHILS % (AUTO) 0.4 % (0-1); EOSINOPHILS # (AUTO) 0.3 X10'3 (0-0.9); EOSINOPHILS % (AUTO) 4.9 % (0-6); HEMATOCRIT 30.2 % (35.0-45.0); HEMOGLOBIN 9.6 g/dl (12.0-16.0); LYMPHOCYTES # (AUTO) 3.2 X10'3 (1.1-4.8); LYMPHOCYTES % (AUTO) 46.5 % (21-51); MEAN CORPUSCULAR HEMOGLOBIN 22.2 PG (27.0-31.0); MEAN CORPUSCULAR HGB CONC 31.9 % (33.0-36.5); MEAN CORPUSCULAR VOLUME 69.7 FL (78-98); MEAN PLATELET VOLUME 8.5 FL (7.4-10.4); MONOCYTES # (AUTO) 0.8 X10'3 (0-0.9); NEUTROPHILS # (AUTO) 2.6 X10'3 (1.8-7.7); NEUTROPHILS % (AUTO) 37.2 % (42-75); PLATELET COUNT 289 X10'3 (140-440); RED BLOOD COUNT 4.33 X10'6 (4.20-5.60); RED CELL DISTRIBUTION WIDTH 20.6 % (11.5-14.5)
[2018-04-21 05:42] LABS: ALBUMIN 2.8 G/DL (3.4-5.0); ANION GAP 6 (8-16); BLOOD UREA NITROGEN 18 MG/DL (7-18); BUN/CREATININE RATIO 16.1 (6.6-38.0); CALCIUM 8.4 MG/DL (8.5-10.1); CHLORIDE 107 MMOL/L (99-107); CREATININE 1.12 MG/DL (0.40-0.90); GLUCOSE 89 MG/DL (70-104); POTASSIUM 4.2 MMOL/L (3.5-5.1); SODIUM 141 MMOL/L (135-145); TOTAL CARBON DIOXIDE 27.9 MMOL/L (24-32); eGFR 58 ML/MIN
[2018-04-21 06:37] LABS: PLATELET ESTIMATE NORMAL
[2018-04-21 06:38] LABS: ANISOCYTOSIS 3+; HYPOCHROMASIA 1+; MICROCYTOSIS 2+; POLYCHROMASIA 1+
[2018-04-21 06:56] VITALS: BP 102/60
[2018-04-21] MEDS: lactobacillus rhamnosus 10,000 MMU CELLS/CAPSULE PO SCH ×2 (08:24→19:02)
[2018-04-21] MEDS: metroNIDAZOLE 500mg tablet PO SCH ×2 (08:24→19:02)
[2018-04-21] MEDS: CefTRIAXone/D5W-Rocephin 1gm 50 ML IV SCH (08:24)
[2018-04-21] MEDS: enoxaparin 40mg/0.4ml syringe SUBCUT SCH (08:44)
[2018-04-21 12:00] VITALS: BP 107/56
[2018-04-21 18:00] VITALS: BP 118/72
[2018-04-21] MEDS: ondansetron/PF 4mg/2ml inj IV PRN (19:04)
[2018-04-22 00:24] VITALS: BP 112/64
[2018-04-22] MEDS: morphine 4 MG/ML inj SYRINge IV PRN ×4 (03:04→20:23)
[2018-04-22] MEDS: ondansetron/PF 4mg/2ml inj IV PRN (03:04)
[2018-04-22] MEDS: potassium Cl 20mEq in NS 1,000 ML IV SCH ×3 (03:14→23:50)
[2018-04-22] MEDS: CefTRIAXone/D5W-Rocephin 1gm 50 ML IV SCH (07:09)
[2018-04-22] MEDS: metroNIDAZOLE 500mg tablet PO SCH (07:11)
[2018-04-22] MEDS: lactobacillus rhamnosus 10,000 MMU CELLS/CAPSULE PO SCH ×2 (07:11→20:12)
[2018-04-22 08:00] VITALS: BP 106/54
[2018-04-22] MEDS: enoxaparin 40mg/0.4ml syringe SUBCUT SCH (08:55)
[2018-04-22] MEDS ORDERED: HYDROcodone/acetaminophen 10/325mg tab PO PRN (10:40)
[2018-04-22 11:45] VITALS: BP 106/61
[2018-04-22] MEDS ORDERED: acetaminophen 325mg tablet PO PRN (14:35)
[2018-04-22 19:00] VITALS: BP 135/57
[2018-04-23] VITALS (19 sets, daily range): BP systolic 15–155; BP diastolic 60–105
[2018-04-23] MEDS: morphine 4 MG/ML inj SYRINge IV PRN ×4 (00:09→20:05)
[2018-04-23 05:37] LABS: BASOPHILS % (AUTO) 0.6 % (0-1); EOSINOPHILS # (AUTO) 0.2 X10'3 (0-0.9); EOSINOPHILS % (AUTO) 3.4 % (0-6); HEMATOCRIT 32.7 % (35.0-45.0); HEMOGLOBIN 10.3 g/dl (12.0-16.0); LYMPHOCYTES # (AUTO) 3.3 X10'3 (1.1-4.8); LYMPHOCYTES % (AUTO) 48.9 % (21-51); MEAN CORPUSCULAR HEMOGLOBIN 22.1 PG (27.0-31.0); MEAN CORPUSCULAR HGB CONC 31.3 % (33.0-36.5); MEAN CORPUSCULAR VOLUME 70.4 FL (78-98); MEAN PLATELET VOLUME 8.8 FL (7.4-10.4); MONOCYTES # (AUTO) 0.6 X10'3 (0-0.9); MONOCYTES % (AUTO) 8.5 % (2-12); NEUTROPHILS # (AUTO) 2.6 X10'3 (1.8-7.7); NEUTROPHILS % (AUTO) 38.6 % (42-75); PLATELET COUNT 283 X10'3 (140-440); RED BLOOD COUNT 4.65 X10'6 (4.20-5.60); RED CELL DISTRIBUTION WIDTH 20.9 % (11.5-14.5); WHITE BLOOD COUNT 6.7 X10'3 (4.5-11.0)
[2018-04-23 06:18] LABS: ALANINE AMINOTRANSFERASE 21 U/L (12-78); ALBUMIN 2.9 G/DL (3.4-5.0); ALBUMIN/GLOBULIN RATIO 0.7 (1.1-1.5); ALKALINE PHOSPHATASE 59 IU/L (46-116); ANION GAP 9 (8-16); ASPARTATE AMINO TRANSFERASE 13 U/L (10-37); BILIRUBIN,TOTAL 0.2 MG/DL (0.1-1.0); BLOOD UREA NITROGEN 15 MG/DL (7-18); CALCIUM 8.8 MG/DL (8.5-10.1); CHLORIDE 107 MMOL/L (99-107); CREATININE 0.88 MG/DL (0.40-0.90); GLUCOSE 87 MG/DL (70-104); POTASSIUM 4.1 MMOL/L (3.5-5.1); SODIUM 143 MMOL/L (135-145); TOTAL CARBON DIOXIDE 27.5 MMOL/L (24-32); TOTAL PROTEIN 6.9 G/DL (6.4-8.2); eGFR 76 ML/MIN
[2018-04-23] MEDS: lactobacillus rhamnosus 10,000 MMU CELLS/CAPSULE PO SCH ×3 (07:53→20:04)
[2018-04-23] MEDS: CefTRIAXone/D5W-Rocephin 1gm 50 ML IV SCH (07:53)
[2018-04-23] MEDS: enoxaparin 40mg/0.4ml syringe SUBCUT SCH (07:53)
[2018-04-23] MEDS: potassium Cl 20mEq in NS 1,000 ML IV SCH ×2 (10:27→19:05)
[2018-04-23] MEDS ORDERED: methylene blue (5mg/ml) 50mg/10ml ampul IV ONE (11:40)
[2018-04-23] MEDS ORDERED: LIDOcaine 2% 10ml TOPICAL JELLY (Urojet) ONE (11:40)
[2018-04-23] MEDS ORDERED: iohexol 300 MG/1 ML 50ml polymer ONE ×3 (11:40→14:57)
[2018-04-23] MEDS ORDERED: ringers solution, lacted 1,000 ML IV SCH (13:04)
[2018-04-23] MEDS ORDERED: ondansetron/PF 4mg/2ml inj IV PRN (13:05)
[2018-04-23] MEDS ORDERED: morphine 4 MG/ML inj SYRINge IV PRN (13:05)
[2018-04-23] MEDS ORDERED: meperidine/PF 25mg/ml syringe IV PRN ×2 (13:05)
[2018-04-23] MEDS ORDERED: midazolam 2 mg/2 ml injection ONE (13:26)
[2018-04-23] MEDS ORDERED: fentaNYL /PF 50mcg/ml 5ml ampule ONE (13:26)
[2018-04-23] MEDS ORDERED: ondansetron/PF 4mg/2ml inj ONE (13:53)
[2018-04-23] MEDS ORDERED: LIDOcaine 2% (20mg/ml) 5ml vial ONE (13:53)
[2018-04-23] MEDS ORDERED: gentamicin 40 MG/1 ML inj ONE ×2 (13:53)
[2018-04-23] MEDS ORDERED: rocuronium 10mg/ml inj IV ONE (13:54)
[2018-04-23] MEDS ORDERED: neostigmine methylsulfate 1 MG/ML 10ml vial ONE (15:42)
[2018-04-23] MEDS ORDERED: glycopyrrolate 0.2mg/ml inj ONE (15:42)
[2018-04-24] VITALS: BP 107/69
[2018-04-24] MEDS: morphine 4 MG/ML inj SYRINge IV PRN ×2 (00:12→04:32)
[2018-04-24] MEDS: potassium Cl 20mEq in NS 1,000 ML IV SCH (04:32)
[2018-04-24 05:12] LABS: BASOPHILS % (AUTO) 0.5 % (0-1); EOSINOPHILS # (AUTO) 0.1 X10'3 (0-0.9); EOSINOPHILS % (AUTO) 1.5 % (0-6); HEMOGLOBIN 9.6 g/dl (12.0-16.0); LYMPHOCYTES # (AUTO) 2.7 X10'3 (1.1-4.8); LYMPHOCYTES % (AUTO) 32.8 % (21-51); MEAN CORPUSCULAR HEMOGLOBIN 22.3 PG (27.0-31.0); MEAN CORPUSCULAR VOLUME 69.7 FL (78-98); MEAN PLATELET VOLUME 8.6 FL (7.4-10.4); MONOCYTES # (AUTO) 0.6 X10'3 (0-0.9); MONOCYTES % (AUTO) 7.2 % (2-12); NEUTROPHILS # (AUTO) 4.9 X10'3 (1.8-7.7); PLATELET COUNT 286 X10'3 (140-440); RED CELL DISTRIBUTION WIDTH 20.5 % (11.5-14.5); WHITE BLOOD COUNT 8.4 X10'3 (4.5-11.0)
[2018-04-24 06:15] LABS: ALANINE AMINOTRANSFERASE 19 U/L (12-78); ALBUMIN 2.7 G/DL (3.4-5.0); ALBUMIN/GLOBULIN RATIO 0.7 (1.1-1.5); ALKALINE PHOSPHATASE 54 IU/L (46-116); ANION GAP 8 (8-16); ASPARTATE AMINO TRANSFERASE 17 U/L (10-37); BILIRUBIN,TOTAL 0.5 MG/DL (0.1-1.0); BLOOD UREA NITROGEN 13 MG/DL (7-18); BUN/CREATININE RATIO 14.1 (6.6-38.0); CALCIUM 8.4 MG/DL (8.5-10.1); CHLORIDE 106 MMOL/L (99-107); CREATININE 0.92 MG/DL (0.40-0.90); GLUCOSE 90 MG/DL (70-104); POTASSIUM 4.2 MMOL/L (3.5-5.1); SODIUM 142 MMOL/L (135-145); TOTAL CARBON DIOXIDE 28.3 MMOL/L (24-32); TOTAL PROTEIN 6.5 G/DL (6.4-8.2); eGFR 72 ML/MIN
[2018-04-24 07:02] VITALS: BP 106/61
[2018-04-24] MEDS ORDERED: SULF1TAB48 PO (07:23)
[2018-04-24 07:28] LABS: ANISOCYTOSIS 2+; MICROCYTOSIS 2+; PLATELET ESTIMATE NORMAL
[2018-04-24 07:29] LABS: TARGET CELLS FEW
[2018-04-24] MEDS: CefTRIAXone/D5W-Rocephin 1gm 50 ML IV SCH (07:35)
[2018-04-24] MEDS: lactobacillus rhamnosus 10,000 MMU CELLS/CAPSULE PO SCH (07:35)
[2018-04-24] MEDS ORDERED: HYDR-3972 PO (09:40)
== END 2018-04-24 11:23 | disposition home or self-care (01) | DRG 443 ==
LOC: ER 23:57 → ED HOLD 04-14 06:08 → SUR 3N 04-14 08:30
PROVIDERS: ADMIT Internal Medicine; ATTEND Family Medicine
PROC: 0TC48ZZ Extirpation of Matter from Left Kidney Pelvis, Via Natural or Artificial Opening Endoscopic (ICD-10-PCS; 2018-04-23)
PROC: 0T9130Z Drainage of Left Kidney with Drainage Device, Percutaneous Approach (ICD-10-PCS; 2018-04-23)
PROC: 0TP Urinary System, Removal (ICD-10-PCS; principal; 2018-04-23 13:30)
DX: T83.122A Displacement of indwelling ureteral stent, initial encounter (principal); N17.9 Acute kidney failure, unspecified; A59.01 Trichomonal vulvovaginitis; N20.2 Calculus of kidney with calculus of ureter; F15.10 Other stimulant abuse, uncomplicated; N39.0 Urinary tract infection, site not specified; E83.51 Hypocalcemia; D64.9 Anemia, unspecified; E87.6 Hypokalemia; Y73.2 Prosthetic and other implants, materials and accessory gastroenterology and urology devices associated with adverse incidents; Y83.1 Surgical operation with implant of artificial internal device as the cause of abnormal reaction of the patient, or of later complication, without mention of misadventure at the time of the procedure; Z59.0 Homelessness; Z71.51 Drug abuse counseling and surveillance of drug abuser
CPT/HCPCS: 36415; 71045; 76001; 80048; 80053; 80305; 81001; 81025; 83605; 83735; 85025; 86885; 86900; 86901; 87040; 87070; 87088; 96361; 96365; 96375; 99285; A4355; A4402; A6257; A6449; A7000; C1729; C1758; C1769; C2628; J0696; J1580; J1650; J2001; J2060; J2175; J2250; J2270; J2405; J2710; J3010; J3490; J7030; J7120; Q9967

== ENCOUNTER 2018-05-19 22:28 | Inpatient (IN) | payer MEDICAID ==
[~2018-05-19] VITALS: Ht 167.6 cm; Wt 58.0 kg
[~2018-05-19 22:28] MED LIST changes: +HYDR-3972 PO; -NO HOME MEDS
[2018-05-20] MEDS ORDERED: morphine 4 MG/ML inj SYRINge IV ONE (00:40)
[2018-05-20 01:13] LABS: PARTIAL THROMBOPLASTIN TIME 27 SECONDS (22-32)
[2018-05-20 01:14] LABS: BASOPHILS % (AUTO) 0.3 % (0-1); EOSINOPHILS # (AUTO) 0.1 X10'3 (0-0.9); EOSINOPHILS % (AUTO) 1.2 % (0-6); HEMATOCRIT 32.5 % (35.0-45.0); HEMOGLOBIN 10.4 g/dl (12.0-16.0); LYMPHOCYTES % (AUTO) 17.2 % (21-51); MEAN CORPUSCULAR HEMOGLOBIN 23.1 PG (27.0-31.0); MEAN CORPUSCULAR VOLUME 72.3 FL (78-98); MONOCYTES # (AUTO) 0.8 X10'3 (0-0.9); MONOCYTES % (AUTO) 6.7 % (2-12); NEUTROPHILS # (AUTO) 8.5 X10'3 (1.8-7.7); NEUTROPHILS % (AUTO) 74.6 % (42-75); PLATELET COUNT 329 X10'3 (140-440); RED BLOOD COUNT 4.49 X10'6 (4.20-5.60); RED CELL DISTRIBUTION WIDTH 19.2 % (11.5-14.5); WHITE BLOOD COUNT 11.4 X10'3 (4.5-11.0)
[2018-05-20 01:22] LABS: ALANINE AMINOTRANSFERASE 23 U/L (12-78); ALBUMIN 3.2 G/DL (3.4-5.0); ALBUMIN/GLOBULIN RATIO 0.7 (1.1-1.5); ALKALINE PHOSPHATASE 71 IU/L (46-116); ANION GAP 8 (8-16); ASPARTATE AMINO TRANSFERASE 17 U/L (10-37); BILIRUBIN,TOTAL 0.3 MG/DL (0.1-1.0); BLOOD UREA NITROGEN 10 MG/DL (7-18); BUN/CREATININE RATIO 10.4 (6.6-38.0); CALCIUM 8.5 MG/DL (8.5-10.1); CHLORIDE 98 MMOL/L (99-107); CREATININE 0.96 MG/DL (0.40-0.90); GLUCOSE 108 MG/DL (70-104); SODIUM 135 MMOL/L (135-145); TOTAL CARBON DIOXIDE 28.7 MMOL/L (24-32); TOTAL PROTEIN 7.9 G/DL (6.4-8.2); eGFR 68 ML/MIN
[2018-05-20 01:30] LABS: POTASSIUM 2.9 MMOL/L (3.5-5.1)
[2018-05-20] MEDS ORDERED: ketorolac trometh. 30mg/ml inj. IV ONE (02:15)
[2018-05-20 02:18] LABS: CLARITY,URINE SLIGHTLY CLOUDY (Clear); COLOR,URINE YELLOW (Yellow); GLUCOSE, URINE NEGATIVE (Neg); KETONES,URINE NEGATIVE (Neg); LEUKOCYTE ESTERASE ,URINE SMALL (Neg); NITRITES, URINE NEGATIVE (Neg); OCCULT BLOOD,URINE LARGE (Neg); PH,URINE 7.5 (4.8-8.0); PROTEIN,URINE 100 mg/dl (Neg); UROBILINOGEN,URINE 0.2 E.U/dL (0.2-1.0)
[2018-05-20] MEDS ORDERED: potassium Cl 20 mEq SR tablet PO ONE (02:32)
[2018-05-20 02:33] LABS: UA COLLECTION TYPE VOIDED
[2018-05-20 02:34] LABS: BACTERIA,URINE 1+ /HPF (Neg); RBC,URINE TNTC /HPF (0-2); SQUAMOUS EPITHELIAL CELL,UR FEW /LPF (FEW); WBC,URINE 50-100 /HPF (0-4)
[2018-05-20] MEDS ORDERED: NO HOME MEDS (03:04)
[2018-05-20] MEDS ORDERED: mag hydrox/Alum hydrox/simeth 30ml oral suspension PO PRN (04:45)
[2018-05-20] MEDS ORDERED: magnesium hydroxide 30ml (MOM) UD suspension PO PRN (04:45)
[2018-05-20] MEDS ORDERED: acetaminophen 325mg tablet PO PRN (04:45)
[2018-05-20] MEDS ORDERED: ondansetron/PF 4mg/2ml inj IV PRN (04:45)
[2018-05-20] MEDS ORDERED: potassium Cl 40MEQ/NS 500ml 500 ML IV PRN (04:50)
[2018-05-20] MEDS ORDERED: potassium Cl 20 mEq SR tablet PO PRN ×2 (04:50)
[2018-05-20] MEDS: CefTRIAXone/D5W-Rocephin 1gm 50 ML IV SCH (06:07)
[2018-05-20] MEDS: normal saline 1000ml 1,000 ML IV SCH ×2 (06:07→14:43)
[2018-05-20] MEDS: morphine 4 MG/ML inj SYRINge IV PRN ×4 (06:08→21:55)
[2018-05-20 07:00] VITALS: BP 124/88
[2018-05-20] MEDS: heparin, porcine 5000 units/ml vial SQ SCH ×2 (08:00→19:27)
[2018-05-20] MEDS: potassium Cl 40MEQ/NS 500ml 500 ML IV PRN ×2 (10:18→17:53)
[2018-05-20 11:00] VITALS: BP 120/72
[2018-05-20] MEDS ORDERED: iohexol 300 MG/1 ML 50ml polymer ONE (15:50)
[2018-05-20] MEDS ORDERED: iohexol 300mg/ml 100ml inj. ONE (18:01)
[2018-05-20] MEDS: lactobacillus rhamnosus 10,000 MMU CELLS/CAPSULE PO SCH (19:56)
[2018-05-20 20:00] VITALS: BP 122/80
[2018-05-21 00:23] VITALS: BP 119/71
[2018-05-21] MEDS: normal saline 1000ml 1,000 ML IV SCH ×3 (00:43→21:00)
[2018-05-21 05:55] LABS: BASOPHILS % (AUTO) 0.4 % (0-1); EOSINOPHILS # (AUTO) 0.2 X10'3 (0-0.9); EOSINOPHILS % (AUTO) 3.5 % (0-6); HEMATOCRIT 29.2 % (35.0-45.0); HEMOGLOBIN 9.3 g/dl (12.0-16.0); LYMPHOCYTES # (AUTO) 2.4 X10'3 (1.1-4.8); LYMPHOCYTES % (AUTO) 42.1 % (21-51); MEAN CORPUSCULAR HEMOGLOBIN 22.7 PG (27.0-31.0); MEAN PLATELET VOLUME 7.8 FL (7.4-10.4); MONOCYTES # (AUTO) 0.6 X10'3 (0-0.9); MONOCYTES % (AUTO) 10.4 % (2-12); NEUTROPHILS # (AUTO) 2.5 X10'3 (1.8-7.7); NEUTROPHILS % (AUTO) 43.6 % (42-75); PLATELET COUNT 280 X10'3 (140-440); RED BLOOD COUNT 4.11 X10'6 (4.20-5.60); RED CELL DISTRIBUTION WIDTH 20.3 % (11.5-14.5); WHITE BLOOD COUNT 5.6 X10'3 (4.5-11.0)
[2018-05-21 05:57] LABS: ALANINE AMINOTRANSFERASE 20 U/L (12-78); ALBUMIN 2.4 G/DL (3.4-5.0); ALBUMIN/GLOBULIN RATIO 0.6 (1.1-1.5); ALKALINE PHOSPHATASE 58 IU/L (46-116); ANION GAP 7 (8-16); ASPARTATE AMINO TRANSFERASE 2 U/L (10-37); BILIRUBIN,TOTAL 0.2 MG/DL (0.1-1.0); BLOOD UREA NITROGEN 12 MG/DL (7-18); CALCIUM 8.6 MG/DL (8.5-10.1); CHLORIDE 106 MMOL/L (99-107); CREATININE 0.92 MG/DL (0.40-0.90); GLUCOSE 96 MG/DL (70-104); POTASSIUM 4.3 MMOL/L (3.5-5.1); SODIUM 139 MMOL/L (135-145); TOTAL CARBON DIOXIDE 26.5 MMOL/L (24-32); TOTAL PROTEIN 6.6 G/DL (6.4-8.2); eGFR 72 ML/MIN
[2018-05-21 07:00] VITALS: BP 110/65
[2018-05-21] MEDS: lactobacillus rhamnosus 10,000 MMU CELLS/CAPSULE PO SCH ×2 (08:00→19:27)
[2018-05-21] MEDS: heparin, porcine 5000 units/ml vial SQ SCH ×2 (08:00→19:27)
[2018-05-21] MEDS: CefTRIAXone/D5W-Rocephin 1gm 50 ML IV SCH (08:51)
[2018-05-21] MEDS: morphine 4 MG/ML inj SYRINge IV PRN ×3 (10:24→23:58)
[2018-05-21 11:00] VITALS: BP 103/57
[2018-05-21] MEDS ORDERED: fentaNYL/PF 50MCG/1 ML 2ML syringe IV PRN (11:40)
[2018-05-21] MEDS ORDERED: midazolam 2 mg/2 ml injection IV PRN (11:40)
[2018-05-21] MEDS ORDERED: LIDOcaine 1%/PF 5ML 10 MG/ML VIAL SQ ONE (11:40)
[2018-05-21] MEDS ORDERED: iohexol 300 MG/1 ML 50ml polymer ONE (12:01)
[2018-05-21] MEDS ORDERED: LIDOcaine 1%/PF 5ML 10 MG/ML VIAL ONE (12:01)
[2018-05-21] MEDS ORDERED: midazolam 2 mg/2 ml injection ONE (12:17)
[2018-05-21] MEDS ORDERED: fentaNYL/PF 50MCG/1 ML 2ML syringe ONE (12:17)
[2018-05-21] MEDS ORDERED: diphenhydrAMINE 50 mg/ml inj ONE (12:26)
[2018-05-21] MEDS ORDERED: diphenhydrAMINE 50 mg/ml inj IV ONE (12:40)
[2018-05-21] MEDS ORDERED: vancomycin/NS 1 GM ADD-VANTAGE 250 ML X 1 DOSE IV ONE (13:45)
[2018-05-21 18:00] VITALS: BP 113/67
[2018-05-22 00:42] VITALS: BP 122/81
[2018-05-22] MEDS ORDERED: vancomycin 750mg inj ONE (01:26)
[2018-05-22] MEDS: VANCOMYCIN 750MG IV in NS 250 ML IV SCH ×2 (01:56→14:18)
[2018-05-22] MEDS: normal saline 1000ml 1,000 ML IV SCH ×2 (05:03→17:52)
[2018-05-22 06:08] LABS: ALANINE AMINOTRANSFERASE 21 U/L (12-78); ALBUMIN 2.4 G/DL (3.4-5.0); ALBUMIN/GLOBULIN RATIO 0.6 (1.1-1.5); ALKALINE PHOSPHATASE 53 IU/L (46-116); ANION GAP 6 (8-16); ASPARTATE AMINO TRANSFERASE 11 U/L (10-37); BILIRUBIN,TOTAL 0.2 MG/DL (0.1-1.0); BLOOD UREA NITROGEN 14 MG/DL (7-18); BUN/CREATININE RATIO 15.1 (6.6-38.0); CALCIUM 8.1 MG/DL (8.5-10.1); CHLORIDE 106 MMOL/L (99-107); CREATININE 0.93 MG/DL (0.40-0.90); GLUCOSE 89 MG/DL (70-104); POTASSIUM 4.3 MMOL/L (3.5-5.1); SODIUM 140 MMOL/L (135-145); TOTAL CARBON DIOXIDE 27.8 MMOL/L (24-32); TOTAL PROTEIN 6.6 G/DL (6.4-8.2); eGFR 71 ML/MIN
[2018-05-22 06:44] LABS: HEMATOCRIT 30.9 % (35.0-45.0); HEMOGLOBIN 9.8 g/dl (12.0-16.0); MEAN CORPUSCULAR VOLUME 71.8 FL (78-98); WHITE BLOOD COUNT 5.8 X10'3 (4.5-11.0)
[2018-05-22 06:45] LABS: BASOPHILS % (AUTO) 0.6 % (0-1); EOSINOPHILS # (AUTO) 0.2 X10'3 (0-0.9); EOSINOPHILS % (AUTO) 3.8 % (0-6); LYMPHOCYTES # (AUTO) 2.5 X10'3 (1.1-4.8); LYMPHOCYTES % (AUTO) 43.5 % (21-51); MEAN CORPUSCULAR HEMOGLOBIN 22.7 PG (27.0-31.0); MEAN CORPUSCULAR HGB CONC 31.6 % (33.0-36.5); MEAN PLATELET VOLUME 7.7 FL (7.4-10.4); MONOCYTES # (AUTO) 0.5 X10'3 (0-0.9); MONOCYTES % (AUTO) 8.9 % (2-12); NEUTROPHILS # (AUTO) 2.5 X10'3 (1.8-7.7); NEUTROPHILS % (AUTO) 43.2 % (42-75); PLATELET COUNT 315 X10'3 (140-440); RED CELL DISTRIBUTION WIDTH 20.5 % (11.5-14.5)
[2018-05-22 07:00] VITALS: BP 116/63
[2018-05-22] MEDS: lactobacillus rhamnosus 10,000 MMU CELLS/CAPSULE PO SCH ×2 (08:36→19:32)
[2018-05-22] MEDS: CefTRIAXone/D5W-Rocephin 1gm 50 ML IV SCH (08:36)
[2018-05-22] MEDS: heparin, porcine 5000 units/ml vial SQ SCH ×2 (08:38→19:32)
[2018-05-22 12:00] VITALS: BP 116/63
[2018-05-22] MEDS: morphine 4 MG/ML inj SYRINge IV PRN ×2 (14:17→19:38)
[2018-05-22 19:10] VITALS: BP 115/77
[2018-05-22 23:45] VITALS: BP 117/70
[2018-05-23] MEDS ORDERED: VANCOMYCIN LEVEL IV NR (01:30)
[2018-05-23] MEDS: morphine 4 MG/ML inj SYRINge IV PRN ×3 (01:44→13:20)
[2018-05-23 02:06] LABS: BASOPHILS % (AUTO) 0.5 % (0-1); EOSINOPHILS # (AUTO) 0.2 X10'3 (0-0.9); EOSINOPHILS % (AUTO) 2.9 % (0-6); HEMATOCRIT 30.5 % (35.0-45.0); HEMOGLOBIN 9.7 g/dl (12.0-16.0); LYMPHOCYTES # (AUTO) 2.7 X10'3 (1.1-4.8); LYMPHOCYTES % (AUTO) 44.9 % (21-51); MEAN CORPUSCULAR HEMOGLOBIN 22.7 PG (27.0-31.0); MEAN CORPUSCULAR HGB CONC 31.7 % (33.0-36.5); MEAN CORPUSCULAR VOLUME 71.6 FL (78-98); MEAN PLATELET VOLUME 7.9 FL (7.4-10.4); MONOCYTES # (AUTO) 0.5 X10'3 (0-0.9); MONOCYTES % (AUTO) 8.7 % (2-12); NEUTROPHILS # (AUTO) 2.6 X10'3 (1.8-7.7); PLATELET COUNT 370 X10'3 (140-440); RED BLOOD COUNT 4.26 X10'6 (4.20-5.60)
[2018-05-23] MEDS: VANCOMYCIN 750MG IV in NS 250 ML IV SCH (02:40)
[2018-05-23 02:47] LABS: ALANINE AMINOTRANSFERASE 18 U/L (12-78); ALBUMIN 2.5 G/DL (3.4-5.0); ALBUMIN/GLOBULIN RATIO 0.6 (1.1-1.5); ALKALINE PHOSPHATASE 55 IU/L (46-116); ANION GAP 8 (8-16); ASPARTATE AMINO TRANSFERASE 7 U/L (10-37); BILIRUBIN,TOTAL 0.1 MG/DL (0.1-1.0); BLOOD UREA NITROGEN 15 MG/DL (7-18); CALCIUM 8.5 MG/DL (8.5-10.1); CHLORIDE 105 MMOL/L (99-107); CREATININE 0.94 MG/DL (0.40-0.90); GLUCOSE 107 MG/DL (70-104); SODIUM 140 MMOL/L (135-145); TOTAL CARBON DIOXIDE 26.8 MMOL/L (24-32); VANCOMYCIN,TROUGH 8.1 UG/ML (6.0-14.0); eGFR 70 ML/MIN
[2018-05-23] MEDS: normal saline 1000ml 1,000 ML IV SCH (04:40)
[2018-05-23 07:00] VITALS: BP 108/61
[2018-05-23] MEDS: CefTRIAXone/D5W-Rocephin 1gm 50 ML IV SCH (08:41)
[2018-05-23] MEDS: heparin, porcine 5000 units/ml vial SQ SCH (08:42)
[2018-05-23] MEDS: lactobacillus rhamnosus 10,000 MMU CELLS/CAPSULE PO SCH (08:42)
[2018-05-23 11:00] VITALS: BP 118/75
[2018-05-23] MEDS ORDERED: LEVO750T21 PO (11:24)
[2018-05-23] MEDS ORDERED: vancomycin inj 1,250 MG in normal saline 250ml IV soln 250 ML IV SCH (14:00)
[2018-05-25] MEDS ORDERED: VANCOMYCIN LEVEL IV ONE (01:30)
== END 2018-05-23 16:50 | disposition home or self-care (01) | DRG 466 ==
LOC: ER 22:28 → ED HOLD 05-20 04:43 → CMPBEDREQ 05-20 05:38 → SUR 3N 05-20 05:45
PROVIDERS: ADMIT Internal Medicine; ATTEND Family Medicine
PROC: BW211ZZ Computerized Tomography (CT Scan) of Abdomen and Pelvis using Low Osmolar Contrast (ICD-10-PCS; 2018-05-20)
PROC: 0T25X0Z Change Drainage Device in Kidney, External Approach (ICD-10-PCS; principal; 2018-05-21)
PROC: BT121ZZ Fluoroscopy of Left Kidney using Low Osmolar Contrast (ICD-10-PCS; 2018-05-21)
DX: T83.512A Infection and inflammatory reaction due to nephrostomy catheter, initial encounter (principal); N13.30 Unspecified hydronephrosis; E87.6 Hypokalemia; F15.10 Other stimulant abuse, uncomplicated; M54.9 Dorsalgia, unspecified; B96.20 Unspecified Escherichia coli [E. coli] as the cause of diseases classified elsewhere; Y84.6 Urinary catheterization as the cause of abnormal reaction of the patient, or of later complication, without mention of misadventure at the time of the procedure; B95.0 Streptococcus, group A, as the cause of diseases classified elsewhere; B95.61 Methicillin susceptible Staphylococcus aureus infection as the cause of diseases classified elsewhere; Z59.0 Homelessness; Z87.442 Personal history of urinary calculi; Z87.891 Personal history of nicotine dependence; Z91.19 Patient's noncompliance with other medical treatment and regimen; Y92.89 Other specified places as the place of occurrence of the external cause
CPT/HCPCS: 36415; 50432; 74176; 74177; 74425; 80053; 80202; 81001; 83605; 84145; 85025; 85610; 85730; 87040; 87070; 87077; 87088; 87186; 96374; 96375; 99285; A4620; A6212; A6257; C1769; C2625; J0696; J1200; J1644; J1885; J2001; J2250; J2270; J3010; J3370; J3480; J7030; Q9967

== ENCOUNTER 2018-08-13 23:21 | Emergency (ER) | payer MEDICAID ==
[~2018-08-13] VITALS: Ht 167.6 cm; Wt 61.4 kg
[2018-08-14 00:38] VITALS: BP 134/92
[2018-08-14] MEDS ORDERED: ibuprofen 200mg tablet PO ONE (02:10)
== END 2018-08-14 02:19 | disposition home or self-care (01) ==
LOC: ER 23:21
DX: S40.862A Insect bite (nonvenomous) of left upper arm, initial encounter (principal); M25.512 Pain in left shoulder; F15.90 Other stimulant use, unspecified, uncomplicated; Z87.442 Personal history of urinary calculi; Z98.890 Other specified postprocedural states; Z98.51 Tubal ligation status; W57.XXXA Bitten or stung by nonvenomous insect and other nonvenomous arthropods, initial encounter; Y93.89 Activity, other specified; Y92.89 Other specified places as the place of occurrence of the external cause; Y99.9 Unspecified external cause status
CPT/HCPCS: 99282

== ENCOUNTER 2019-10-04 15:52 | Emergency (ER) | payer MEDICAID, OTHER ==
[~2019-10-04] VITALS: Ht 167.6 cm; Wt 61.1 kg
[2019-10-04] MEDS ORDERED: ondansetron/PF 4mg/2ml inj IV ONE (16:35)
[2019-10-04] MEDS ORDERED: ketorolac trometh. 30mg/ml inj. IV ONE (16:35)
[2019-10-04] MEDS ORDERED: normal saline 1000ML IV soln IVB ONE (16:35)
--- NOTE | 2019-10-04 17:32 | NUR ---
Pt requesting we call her friend Ritchie at [phone]. Attempted to call said person, but lost connection soon after he answered.
[2019-10-04 17:44] LABS: URINE HCG NEGATIVE (NEG)
[2019-10-04 17:45] LABS: CLARITY,URINE TURBID (Clear); COLOR,URINE STRAW (Yellow); GLUCOSE, URINE NEGATIVE (Neg); KETONES,URINE NEGATIVE (Neg); LEUKOCYTE ESTERASE ,URINE NEGATIVE (Neg); NITRITES, URINE POSITIVE (Neg); OCCULT BLOOD,URINE LARGE (Neg); PROTEIN,URINE NEGATIVE (Neg); UROBILINOGEN,URINE 0.2 E.U/dL (0.2-1.0)
[2019-10-04 17:46] LABS: UA COLLECTION TYPE CLN CATCH MIDSTREAM
[2019-10-04 17:56] LABS: URINE AMPHETAMINE SCREEN POSITIVE (Neg); URINE BARBITUATE SCREEN NEGATIVE (Neg); URINE BENZODIAZEPINES SCREEN NEGATIVE (Neg); URINE CANNABINOID SCREEN NEGATIVE (Neg); URINE COCAINE SCREEN NEGATIVE (Neg); URINE METHADONE SCREEN NEGATIVE (Neg); URINE OPIATE SCREEN NEGATIVE (Neg); URINE PHENCYCLIDINE SCREEN NEGATIVE (Neg)
--- NOTE | 2019-10-04 17:57 | NUR ---
SPOKE TO DR GAFFNEY REGARDING PATIENT REFUSING TO ALLOW ME TO START A PIV ABOVE WHERE I FIRST ATTEMPTED. LEFT AC PIV ATTEMPTED BY ANALILIA WALTER. AT THIS TIME, PATIENT IS REFUSING AN IV. PATIENT HAS SEVERELY SCARRED VEINS. PER PATIENT LAST IV METH USE WAS 2 WEEKS AGO
[2019-10-04 17:58] LABS: SQUAMOUS EPITHELIAL CELL,UR MANY /LPF (FEW)
[2019-10-04 17:59] LABS: MUCUS STRANDS FEW /LPF (Neg)
[2019-10-04 18:02] LABS: AMORPHOUS PHOSPHATES 4+; BACTERIA,URINE 4+ /HPF (Neg); RBC,URINE 0-2 /HPF (0-2)
[2019-10-04] MEDS ORDERED: diazepam 5mg tablet PO ONE (18:20)
[2019-10-04] MEDS ORDERED: ibuprofen 200mg tablet PO ONE (18:20)
--- NOTE | 2019-10-04 18:42 | NUR ---
states no IV no labs. He is going to give po meds and d/c. Gave pt some crackers and apple juice.
[2019-10-04] MEDS ORDERED: IBUP-1984 PO (19:14)
[2019-10-04 19:18] VITALS: BP 129/74
== END 2019-10-04 19:21 | disposition home or self-care (01) ==
LOC: ER 15:53
DX: S39.012A Strain of muscle, fascia and tendon of lower back, initial encounter (principal); F15.10 Other stimulant abuse, uncomplicated; F17.200 Nicotine dependence, unspecified, uncomplicated; Z79.899 Other long term (current) drug therapy; Z87.442 Personal history of urinary calculi; Z98.51 Tubal ligation status; Z59.0 Homelessness; X58.XXXA Exposure to other specified factors, initial encounter; Y93.89 Activity, other specified; Y92.89 Other specified places as the place of occurrence of the external cause; Y99.8 Other external cause status
CPT/HCPCS: 74176; 80305; 81001; 81025; 99284; J1885; J2405

== ENCOUNTER 2020-01-12 12:47 | Emergency (ER) | payer MEDICAID, OTHER ==
[~2020-01-12] VITALS: Ht 167.6 cm; Wt 74.9 kg
[2020-01-12 12:52] VITALS: BP 137/101
[2020-01-12] MEDS ORDERED: CLIN-90 PO (13:55)
== END 2020-01-12 14:11 | disposition home or self-care (01) ==
LOC: ER 12:47
DX: K05.10 Chronic gingivitis, plaque induced (principal); F17.200 Nicotine dependence, unspecified, uncomplicated; F15.10 Other stimulant abuse, uncomplicated; Z98.51 Tubal ligation status; Z98.890 Other specified postprocedural states; Z59.0 Homelessness; Z91.040 Latex allergy status; Z79.2 Long term (current) use of antibiotics
CPT/HCPCS: 99283

== ENCOUNTER 2020-11-22 14:46 | Emergency (ER) | payer MEDICAID, OTHER ==
[~2020-11-22] VITALS: Ht 167.6 cm; Wt 75.4 kg
[~2020-11-22 14:46] MED LIST changes: +CLIN-97 PO; -HYDR-3972 PO
[2020-11-22 14:48] VITALS: BP 119/91
[2020-11-22 15:30] LABS: URINE HCG NEGATIVE (NEG)
[2020-11-22 15:32] LABS: CLARITY,URINE SLIGHTLY CLOUDY (Clear); COLOR,URINE YELLOW (Yellow); GLUCOSE, URINE NEGATIVE (Neg); KETONES,URINE NEGATIVE (Neg); LEUKOCYTE ESTERASE ,URINE SMALL (Neg); NITRITES, URINE NEGATIVE (Neg); OCCULT BLOOD,URINE LARGE (Neg); PROTEIN,URINE NEGATIVE (Neg); UROBILINOGEN,URINE 0.2 E.U/dL (0.2-1.0)
[2020-11-22 15:51] LABS: UA COLLECTION TYPE CLN CATCH MIDSTREAM
[2020-11-22 15:54] LABS: MUCUS STRANDS NONE SEEN /LPF (Neg); SQUAMOUS EPITHELIAL CELL,UR MODERATE /LPF (FEW)
[2020-11-22 15:55] LABS: BACTERIA,URINE 2+ /HPF (Neg); RBC,URINE 50-100 /HPF (0-2)
[2020-11-22 15:56] LABS: WBC CLUMPS,URINE FEW /HPF (NEGATIVE)
[2020-11-22 15:58] LABS: TRICHOMONAS,URINE MOD /HPF (NEGATIVE)
[2020-11-22] MEDS: ondansetron 4mg rapidly disintigrating tab PO ONE ×2 (16:25→17:55)
[2020-11-22 17:14] LABS: ALANINE AMINOTRANSFERASE 17 U/L (12-78); ALBUMIN 3.7 G/DL (3.4-5.0); ALBUMIN/GLOBULIN RATIO 0.9 (1.1-1.5); ALKALINE PHOSPHATASE 55 IU/L (46-116); ANION GAP 5 (8-16); ASPARTATE AMINO TRANSFERASE 13 U/L (10-37); BILIRUBIN,TOTAL 0.5 MG/DL (0.1-1.0); BLOOD UREA NITROGEN 8 MG/DL (7-18); CALCIUM 9.3 MG/DL (8.5-10.1); CHLORIDE 105 MMOL/L (99-107); CREATININE 0.89 MG/DL (0.40-0.90); GLUCOSE 96 MG/DL (70-104); LIPASE 91 U/L (73-393); POTASSIUM 4.2 MMOL/L (3.5-5.1); SODIUM 140 MMOL/L (135-145); TOTAL CARBON DIOXIDE 29.6 MMOL/L (24-32); TOTAL PROTEIN 7.8 G/DL (6.4-8.2); eGFR 74 ML/MIN
[2020-11-22 17:18] LABS: BASOPHILS # (AUTO) 0.1 X10'3 (0-0.2); BASOPHILS % (AUTO) 1.2 % (0-1); EOSINOPHILS # (AUTO) 0.1 X10'3 (0-0.9); EOSINOPHILS % (AUTO) 0.9 % (0-6); HEMATOCRIT 40.9 % (35.0-45.0); HEMOGLOBIN 13.3 g/dl (12.0-16.0); MEAN CORPUSCULAR HEMOGLOBIN 26.8 PG (27.0-31.0); MEAN CORPUSCULAR HGB CONC 32.4 g/dL (33.0-36.5); MEAN CORPUSCULAR VOLUME 82.5 FL (78-98); MONOCYTES # (AUTO) 0.5 X10'3 (0-0.9); MONOCYTES % (AUTO) 6.2 % (2-12); NEUTROPHILS # (AUTO) 4.9 X10'3 (1.8-7.7); NEUTROPHILS % (AUTO) 65.7 % (42-75); PLATELET COUNT 265 X10'3 (140-440); RED BLOOD COUNT 4.95 X10'6 (4.20-5.60); RED CELL DISTRIBUTION WIDTH 14.9 % (11.5-14.5); WHITE BLOOD COUNT 7.5 X10'3 (4.5-11.0)
[2020-11-22] MEDS: CefTRIAXone 250MG IM Kit w/LIDOcaine IM ONE ×2 (17:32→18:00)
[2020-11-22] MEDS: DOXYCYCLINE 100MG CAPSULE PO STA ×2 (17:32→17:47)
[2020-11-22] MEDS ORDERED: DOXY-1 PO (18:23)
== END 2020-11-22 18:20 | disposition home or self-care (01) ==
LOC: ER 14:47
DX: R10.84 Generalized abdominal pain (principal); R11.2 Nausea with vomiting, unspecified; R30.0 Dysuria; F15.90 Other stimulant use, unspecified, uncomplicated; Z87.442 Personal history of urinary calculi; Z98.51 Tubal ligation status; Z98.890 Other specified postprocedural states; Z59.0 Homelessness; Z91.040 Latex allergy status; Z79.2 Long term (current) use of antibiotics
CPT/HCPCS: 36415; 76775; 80053; 81001; 81025; 83690; 85025; 87077; 87088; 87186; 87491; 87591; 96372; 99284; J0696

== ENCOUNTER 2021-05-16 18:44 | Emergency (ER) | payer SELFPAY ==
[~2021-05-16] VITALS: Ht 167.6 cm; Wt 75.1 kg
[2021-05-16 19:21] VITALS: BP 145/105
[2021-05-16] MEDS ORDERED: CEPH250T PO (19:59)
[2021-05-16] MEDS ORDERED: SULF1TAB45 PO (19:59)
== END 2021-05-16 20:33 | disposition home or self-care (01) ==
LOC: ER 18:45
DX: S10.86XA Insect bite of other specified part of neck, initial encounter (principal); L08.9 Local infection of the skin and subcutaneous tissue, unspecified; F15.90 Other stimulant use, unspecified, uncomplicated; Z87.442 Personal history of urinary calculi; Z98.51 Tubal ligation status; Z98.890 Other specified postprocedural states; Z59.0 Homelessness; Z91.040 Latex allergy status; Z79.2 Long term (current) use of antibiotics; W57.XXXA Bitten or stung by nonvenomous insect and other nonvenomous arthropods, initial encounter; Y93.89 Activity, other specified; Y92.89 Other specified places as the place of occurrence of the external cause; Y99.8 Other external cause status
CPT/HCPCS: 99283

== ENCOUNTER 2021-08-03 12:57 | Emergency (ER) | payer MEDICAID, OTHER ==
[~2021-08-03] VITALS: Ht 167.6 cm; Wt 77.3 kg
[2021-08-03 13:19] VITALS: BP 139/109
[2021-08-03 14:16] LABS: URINE HCG NEGATIVE (NEG)
[2021-08-03 14:32] LABS: CLARITY,URINE CLOUDY (Clear); COLOR,URINE YELLOW (Yellow); GLUCOSE, URINE NEGATIVE (Neg); KETONES,URINE NEGATIVE (Neg); LEUKOCYTE ESTERASE ,URINE TRACE (Neg); NITRITES, URINE NEGATIVE (Neg); OCCULT BLOOD,URINE NEGATIVE (Neg); PH,URINE 7.5 (4.8-8.0); PROTEIN,URINE NEGATIVE (Neg); UA COLLECTION TYPE CLN CATCH MIDSTREAM; UROBILINOGEN,URINE 0.2 E.U/dL (0.2-1.0)
[2021-08-03 14:33] LABS: AMORPHOUS PHOSPHATES 3+; BACTERIA,URINE FEW /HPF (Neg); MUCUS STRANDS NONE SEEN /LPF (Neg); RBC,URINE NONE SEEN /HPF (0-2); SQUAMOUS EPITHELIAL CELL,UR MODERATE /LPF (FEW); WBC,URINE 0-4 /HPF (0-4)
== END 2021-08-03 20:08 | disposition left against medical advice (07) ==
LOC: ER 12:58
DX: R10.9 Unspecified abdominal pain (principal); Z53.21 Procedure and treatment not carried out due to patient leaving prior to being seen by health care provider
CPT/HCPCS: 81001; 81025; 87088; 99283

== ENCOUNTER 2022-03-23 19:25 | Emergency (ER) | payer MEDICAID, OTHER ==
[~2022-03-23] VITALS: Ht 167.6 cm; Wt 66.4 kg
[2022-03-23] MEDS: ondansetron/PF 4mg/2ml inj IV ONE (20:32)
[2022-03-23] MEDS: normal saline 1000ML IV soln IVB ONE (20:32)
--- NOTE | 2022-03-23 20:33 | NUR ---
PT AWARE OF NEED FOR URINE, STATES SHE CANNOT URINATE AT THIS TIME
[2022-03-23 20:37] LABS: BASOPHILS % (AUTO) 0.6 % (0-1); EOSINOPHILS # (AUTO) 0.1 X10'3 (0-0.9); HEMATOCRIT 39.2 % (35.0-45.0); HEMOGLOBIN 12.9 g/dl (12.0-16.0); MEAN CORPUSCULAR HGB CONC 32.9 g/dL (33.0-36.5); MEAN CORPUSCULAR VOLUME 82.2 FL (78-98); MEAN PLATELET VOLUME 7.8 FL (7.4-10.4); MONOCYTES # (AUTO) 0.5 X10'3 (0-0.9); MONOCYTES % (AUTO) 7.4 % (2-12); NEUTROPHILS # (AUTO) 4.2 X10'3 (1.8-7.7); PLATELET COUNT 235 X10'3 (140-440); RED BLOOD COUNT 4.76 X10'6 (4.20-5.60); RED CELL DISTRIBUTION WIDTH 15.6 % (11.5-14.5); WHITE BLOOD COUNT 6.9 X10'3 (4.5-11.0)
[2022-03-23 20:57] LABS: ALANINE AMINOTRANSFERASE 13 U/L (12-78); ALBUMIN 3.6 G/DL (3.4-5.0); ALBUMIN/GLOBULIN RATIO 0.9 (1.1-1.5); ALKALINE PHOSPHATASE 51 IU/L (46-116); ANION GAP 10 (8-16); ASPARTATE AMINO TRANSFERASE 14 U/L (10-37); BILIRUBIN,TOTAL 0.3 MG/DL (0.1-1.0); BLOOD UREA NITROGEN 15 MG/DL (7-18); BUN/CREATININE RATIO 12.1 (6.6-38.0); CALCIUM 8.8 MG/DL (8.5-10.1); CHLORIDE 107 MMOL/L (99-107); CREATININE 1.24 MG/DL (0.40-0.90); GLUCOSE 105 MG/DL (70-104); POTASSIUM 3.7 MMOL/L (3.5-5.1); SODIUM 143 MMOL/L (135-145); TOTAL CARBON DIOXIDE 25.7 MMOL/L (24-32); TOTAL PROTEIN 7.6 G/DL (6.4-8.2); eGFR 50 ML/MIN
[2022-03-23] MEDS: ketorolac trometh. 30mg/ml inj. IV ONE (21:25)
[2022-03-23] MEDS: metoclopramide 5 mg/ml inj IV ONE (21:25)
[2022-03-23] MEDS: acetaminophen 325mg tablet PO ONE (21:25)
[2022-03-23 21:31] VITALS: BP 118/75
== END 2022-03-23 21:53 | disposition home or self-care (01) ==
LOC: ER 19:26
DX: T67.5XXA Heat exhaustion, unspecified, initial encounter (principal); E86.0 Dehydration; R51.9 Headache, unspecified; R11.2 Nausea with vomiting, unspecified; R10.84 Generalized abdominal pain; F15.90 Other stimulant use, unspecified, uncomplicated; Z87.442 Personal history of urinary calculi; Z98.51 Tubal ligation status; Z98.890 Other specified postprocedural states; Z59.00 Homelessness unspecified; Z91.040 Latex allergy status; Z79.2 Long term (current) use of antibiotics; X58.XXXA Exposure to other specified factors, initial encounter; Y93.89 Activity, other specified; Y92.89 Other specified places as the place of occurrence of the external cause; Y99.8 Other external cause status
CPT/HCPCS: 36415; 70450; 80053; 85025; 96361; 96374; 96375; 99284; J1885; J2405; J2765; J7030

== ENCOUNTER 2022-05-16 16:40 | Emergency (ER) | payer MEDICAID ==
[~2022-05-16] VITALS: Ht 167.6 cm; Wt 67.0 kg
[2022-05-16 17:26] VITALS: BP 131/79
[2022-05-16 21:48] LABS: ALANINE AMINOTRANSFERASE 18 U/L (12-78); ALBUMIN 3.6 G/DL (3.4-5.0); ALBUMIN/GLOBULIN RATIO 0.9 (1.1-1.5); ALKALINE PHOSPHATASE 54 IU/L (46-116); ANION GAP 9 (8-16); ASPARTATE AMINO TRANSFERASE 14 U/L (10-37); BILIRUBIN,TOTAL 0.6 MG/DL (0.1-1.0); BLOOD UREA NITROGEN 12 MG/DL (7-18); BUN/CREATININE RATIO 12.6 (6.6-38.0); CALCIUM 8.6 MG/DL (8.5-10.1); CHLORIDE 106 MMOL/L (99-107); CREATININE 0.95 MG/DL (0.40-0.90); GLUCOSE 126 MG/DL (70-104); LIPASE 68 U/L (73-393); POTASSIUM 3.8 MMOL/L (3.5-5.1); SODIUM 139 MMOL/L (135-145); TOTAL CARBON DIOXIDE 24.1 MMOL/L (24-32); TOTAL PROTEIN 7.5 G/DL (6.4-8.2); eGFR 67 ML/MIN
[2022-05-16 22:02] LABS: BASOPHILS % (AUTO) 0.4 % (0-1); EOSINOPHILS % (AUTO) 0.5 % (0-6); HEMATOCRIT 40.5 % (35.0-45.0); HEMOGLOBIN 13.2 g/dl (12.0-16.0); LYMPHOCYTES # (AUTO) 1.6 X10'3 (1.1-4.8); LYMPHOCYTES % (AUTO) 18.1 % (21-51); MEAN CORPUSCULAR HEMOGLOBIN 26.5 PG (27.0-31.0); MEAN CORPUSCULAR HGB CONC 32.5 g/dL (33.0-36.5); MEAN CORPUSCULAR VOLUME 81.3 FL (78-98); MEAN PLATELET VOLUME 8.7 FL (7.4-10.4); MONOCYTES # (AUTO) 0.4 X10'3 (0-0.9); MONOCYTES % (AUTO) 4.7 % (2-12); NEUTROPHILS # (AUTO) 6.9 X10'3 (1.8-7.7); NEUTROPHILS % (AUTO) 76.3 % (42-75); PLATELET COUNT 126 X10'3 (140-440); RED BLOOD COUNT 4.98 X10'6 (4.20-5.60); WHITE BLOOD COUNT 9.1 X10'3 (4.5-11.0)
[2022-05-17 01:41] LABS: CLARITY,URINE CLEAR (Clear); COLOR,URINE YELLOW (Yellow); GLUCOSE, URINE NEGATIVE (Neg); KETONES,URINE NEGATIVE (Neg); LEUKOCYTE ESTERASE ,URINE NEGATIVE (Neg); NITRITES, URINE NEGATIVE (Neg); OCCULT BLOOD,URINE MODERATE (Neg); PH,URINE 6.5 (4.8-8.0); PROTEIN,URINE NEGATIVE (Neg); UROBILINOGEN,URINE 0.2 E.U/dL (0.2-1.0)
[2022-05-17 01:42] LABS: URINE HCG NEGATIVE (NEG)
[2022-05-17 01:43] LABS: UA COLLECTION TYPE CLN CATCH MIDSTREAM
[2022-05-17 01:49] LABS: BACTERIA,URINE FEW /HPF (Neg); SQUAMOUS EPITHELIAL CELL,UR NONE SEEN /LPF (FEW)
[2022-05-17] MEDS ORDERED: ondansetron 4mg rapidly disintigrating tab PO ONE (05:30)
[2022-05-17] MEDS ORDERED: naproxen 500mg tablet PO ONE (05:30)
[2022-05-17] MEDS ORDERED: ciprofloxacin 250mg tablet PO ONE ×2 (05:30→08:40)
[2022-05-17] MEDS ORDERED: NAPR-56 PO (05:35)
[2022-05-17] MEDS ORDERED: CIPR-260 PO (05:35)
[2022-05-17] MEDS ORDERED: ONDA4TAB12 PO (05:35)
== END 2022-05-17 09:15 | disposition home or self-care (01) ==
LOC: ER 16:41
DX: N39.0 Urinary tract infection, site not specified (principal); F15.90 Other stimulant use, unspecified, uncomplicated; Z98.51 Tubal ligation status; Z59.00 Homelessness unspecified; Z91.040 Latex allergy status; Z79.899 Other long term (current) drug therapy
CPT/HCPCS: 36415; 80053; 81001; 81025; 83690; 85025; 87088; 99284

== ENCOUNTER 2025-11-07 01:14 | Emergency (ER) | payer MEDICAID ==
[~2025-11-07] VITALS: Ht 167.6 cm; Wt 68.1 kg
[~2025-11-07 01:14] MED LIST changes: +CIPR-260 PO; +CLIN-224 PO; -CLIN-97 PO; +ONDA-243 PO
[2025-11-07 01:19] VITALS: BP 94/70; PULSE 102; RESP 16; TEMP 98.4; O2SAT 100
== END 2025-11-07 05:30 | disposition left against medical advice (07) ==
LOC: ER 01:14
DX: Z88.6 Allergy status to analgesic agent (principal); Z53.21 Procedure and treatment not carried out due to patient leaving prior to being seen by health care provider
CPT/HCPCS: 99281